=== PATIENT | female | born 1945 | race Caucasian/White ===

== ENCOUNTER → 2020-06-15 12:04 | Outpatient (CLI) | payer MEDICARE, BC, SELFPAY ==
[2020-06-15 13:56] LABS: Add Manual Diff / Slide Review NO; Basophils Absolute Auto 0 /uL (0-100); Basophils Percent Auto 0.6 % (0-2); Eosinophils Absolute Auto 100 /uL (0-450); Eosinophils Percent Auto 0.9 % (2-4); Hematocrit 42.3 % (36-46); Hemoglobin 14.2 g/dL (12.0-16.0); Lymphocytes Absolute Auto 1400 /uL (1100-4500); Lymphocytes Percent Auto 21.9 % (25-40); Mean Corpuscular HGB Conc 33.5 % (30-36); Mean Corpuscular Hemoglobin 30.9 PG (26-34); Mean Corpuscular Volume 92.4 fL (80-100); Monocytes Absolute Auto 600 /uL (0-900); Monocytes Percent Auto 10.1 % (3-14); Neutrophils Absolute Auto 4100 /uL (1500-7000); Neutrophils Percent Auto 66.5 % (50-75); Platelet Count 357 X10^3/uL (150-400); Red Blood Cell Count 4.58 X10^6/uL (4.0-5.2); White Blood Cell Count 6.2 X10^3/uL (4.5-11.0)
[2020-06-15 14:11] LABS: Alanine Aminotransferase 49 IU/L (<35); Albumin 4.6 g/dL (3.5-5.0); Albumin Globulin Ratio 1.5 (1.0-2.8); Alkaline Phosphatase 61 U/L (38-126); Aspartate Aminotransferase 38 IU/L (14-36); BUN Creatinine Ratio 17.3 (6-22); Bilirubin Total 0.7 mg/dL (0.2-1.3); Blood Urea Nitrogen 23 mg/dL (7-17); Carbon Dioxide 30 mmol/L (22-32); Chloride 101 mmol/L (98-107); Estimated Glomerular Filt Rate 38.9 mL/min (>60); Glucose 105 mg/dL (80-110); HEMOLYSIS < 15 (0-50); Lipase 33 U/L (23-300); Potassium 4.7 mmol/L (3.4-5.1); Sodium 139 mmol/L (137-145); Total Protein 7.6 g/dL (6.3-8.2)
== END ==
PROVIDERS: PCP Internal Medicine; Referring Provider Internal Medicine; Visit Provider Internal Medicine
DX: I25.10 Atherosclerotic heart disease of native coronary artery without angina pectoris (principal); R19.7 Diarrhea, unspecified; R10.33 Periumbilical pain
CPT/HCPCS: 36415; 80053; 83690; 85025

== ENCOUNTER → 2020-06-16 11:59 | Outpatient (CLI) | payer MEDICARE, BC, SELFPAY ==
[2020-06-16 13:15] LABS: Clostridium Difficile Tox PCR Negative for C. diff
== END ==
PROVIDERS: PCP Internal Medicine; Referring Provider Internal Medicine; Visit Provider Internal Medicine
DX: I25.10 Atherosclerotic heart disease of native coronary artery without angina pectoris (principal); R19.7 Diarrhea, unspecified; R10.33 Periumbilical pain
CPT/HCPCS: 87205; 87493

== ENCOUNTER → 2020-06-20 08:41 | Outpatient (CLI) | payer MEDICARE, BC, SELFPAY ==
--- NOTE | 2020-06-20 | DI.CT.S_ITS ---
PROCEDURE: CT ABDOMEN PELVIS W CON INDICATIONS: Atherosclerotic heart disease of [place] coronary TECHNIQUE: After the administration of oral and intravenous contrast, 5 mm thick sections acquired from the diaphragms to the symphysis. 5 mm thick coronal and sagittal reformats were performed. For radiation dose reduction, the following was used: automated exposure control, adjustment of mA and/or kV according to patient size. COMPARISON: None. FINDINGS: Image quality: Excellent. ABDOMEN: Lung bases: Lung bases are clear. Heart size is normal. Hepatic steatosis gallbladder not seen, probably decompressed versus surgically absent. . Biliary system is non-dilated. Pancreas enhances normally. Spleen is normal in size and enhancement. No adrenal nodules. Kidneys are normal in size and enhancement, without hydronephrosis. Small hiatal hernia. No free fluid or air. Colonic diverticulosis is seen without evidence of acute complication. Nodes and vessels: No retroperitoneal or mesenteric adenopathy. Aorta and inferior vena cava are normal in caliber. Miscellaneous: No ventral hernias. PELVIS: Genitourinary: Bladder wall thickness is normal. Miscellaneous: No inguinal hernias or adenopathy. Bones: No suspicious bony lesions. No vertebral body compression fractures. IMPRESSION: Small hiatal hernia Hepatic steatosis. Incidental colonic diverticulosis. No acute abnormality identified. Dictated by: Tayo Lamar M.D. on 06/20/2020 at 10:16 Approved by: Tayo Lamar M.D. on 06/20/2020 at 10:23
== END ==
PROVIDERS: PCP Internal Medicine; Referring Provider Internal Medicine; Visit Provider Internal Medicine
DX: I25.10 Atherosclerotic heart disease of native coronary artery without angina pectoris (principal); K76.0 Fatty (change of) liver, not elsewhere classified; K57.90 Diverticulosis of intestine, part unspecified, without perforation or abscess without bleeding; K44.9 Diaphragmatic hernia without obstruction or gangrene; R19.7 Diarrhea, unspecified; R10.33 Periumbilical pain
CPT/HCPCS: 74177

== ENCOUNTER 2020-09-10 16:46 | Inpatient (IN) | payer MEDICARE, BC, SELFPAY ==
[2020-09-10] VITALS (15 sets, daily range): BP systolic 96–141; BP diastolic 37–71; PULSE 64–79; RESP 13–25; TEMP 35.7–38.9; O2SAT 88–98; BMI 26.6
--- NOTE | 2020-09-10 17:34 | ED_ITS ---
HPI - SOB/Dyspnea <Deanna Stiles, DO - Last Filed: 09/11/20 07:38> General Chief Complaint: Shortness of Breath/Dyspnea Stated Complaint: Head cold that is worsening Time Seen by Provider: 09/10/20 16:59 Source: patient and family () Mode of arrival: Wheelchair Limitations: no limitations History of Present Illness HPI Narrative: This is a 74-year-old female who comes in with complaint of 6 days initially had congestion with postnasal drip, she states over the last several days it has moved more into her chest and she feels congested. She has had a cough with some productive sputum. She occasionally feels short of breath or like she needs to take a deep inspiration. She denies any chest pain. She has a fever here in the department. She has had some anorexia, some mild nausea but no vomiting. She denies any major changes to bowel movements or with urination. She denies any swelling in her extremities. She does have a history of rheumatic heart disease as well as cardiac stent, she states she has rheumatoid but is not currently on any steroids or immune modulating medications per the patient. She denies any prior tobacco use. She states she has an allergies to sulfa, Valium and oxycodone. Dr. Ochoa is her primary care. Related Data Home Medications Medication Instructions Recorded Confirmed amlodipine 5 mg PO DAILY 09/10/20 09/10/20 aspirin [Concepcion Chewable Aspirin] 81 mg PO DAILY 09/10/20 09/10/20 cholecalciferol (vitamin D3) 50 mcg PO DAILY 09/10/20 09/10/20 dexlansoprazole [Dexilant] 60 mg PO DAILY 09/10/20 09/10/20 glimepiride mg 09/10/20 nitroglycerin 0.3 mg SUBLINGUAL Q5-15M PRN 09/10/20 09/10/20 potassium [Potassium Chelated] mg 09/10/20 prednisone 5 mg PO TAPER PRN 09/10/20 09/10/20 simvastatin 20 mg PO BEDTIME 09/10/20 09/10/20 tofacitinib [Xeljanz XR] 11 mg PO Q24H 09/10/20 09/10/20 vitamin B complex [B Complex] 1 cap PO DAILY 09/10/20 09/10/20 Allergies Allergy/AdvReac Type Severity Reaction Status Date / Time Sulfa (Sulfonamide Allergy Anaphylaxis Verified 09/10/20 17:17 Antibiotics) codeine AdvReac Verified 09/10/20 17:17 diazepam [From Valium] AdvReac Hallucinati Verified 09/10/20 17:17 ng oxycodone AdvReac Verified 09/10/20 17:17 Review of Systems <Deanna Stiles DO - Last Filed: 09/11/20 07:38> Review of Systems ROS Unobtainable: All systems reviewed & are unremarkable except as noted in HPI and below <Kelley Stanton DO - Last Filed: 09/10/20 21:22> Review of Systems ROS Unobtainable: All systems reviewed & are unremarkable except as noted in HPI and below Constitutional Constitutional: Reports body ache(s), Reports chills, Reports fatigue and Repo rts fever(s) Cardiovascular Cardiovascular: Denies chest pain, Denies irregular heart rhythm, Denies lightheadedness, Denies palpitations and Denies orthopnea Respiratory Respiratory: Reports as per HPI Endocrine Endocrine: Reports fatigue and Denies palpitations Patient History <Deanna Stiles DO - Last Filed: 09/11/20 07:38> Medical History (Updated 09/11/20 @ 01:20 by OTYA Wang) Coronary artery disease GERD (gastroesophageal reflux disease) Hyperlipidemia Rheumatoid arthritis Type 2 diabetes mellitus Surgical History (Updated 09/11/20 @ 01:20 by TOYA Wang) History of coronary artery stent placement Social History household members: significant other Smoking Status: Never smoker alcohol intake: current Smoking Status: Never smoker alcohol intake frequency: 0-2 drinks per day Substance Use Type: does not use Exam <Deanna Stiles DO - Last Filed: 09/11/20 07:38> Narrative Exam Narrative: GEN: well nourished, well appearing elderly female, alert and oriented x 3, patient appears to be in mild distress. HEENT: Atraumatic, pupils are equal round reactive to light, extraocular movements are intact. HEART: Regular rate and rhythm without murmur, clicks, rubs. LUNGS:Lungs clear to auscultation, no wheezes, rales, crackles, chest moves symmetrically, no tachypnea or accessory muscle use. ABD:bowel sounds normal, soft, non-tender, no guarding, rebound, rigidity, no masses noted, no hepatosplenomegaly MSCL: Non-tender, no muscle atrophy, muscles strength 5/5 upper and lower extremities, full range of motion, normal gait NEURO:CN 2-12 intact, sensation normal SKIN: no rash, no erythema or other changes noted. Initial Vital Signs Initial Vital Signs: Vital Signs Temperature 102.1 F H 09/10/20 17:06 Pulse Rate 75 09/10/20 17:06 Respiratory Rate 18 09/10/20 17:06 Blood Pressure 133/68 09/10/20 17:06 Pulse Oximetry 98 09/10/20 17:06 <Kelley Stanton DO - Last Filed: 09/10/20 21:22> Initial Vital Signs Initial Vital Signs: Vital Signs Temperature 102.1 F H 09/10/20 17:06 Pulse Rate 75 09/10/20 17:06 Respiratory Rate 18 09/10/20 17:06 Blood Pressure 133/68 09/10/20 17:06 Pulse Oximetry 98 09/10/20 17:06 Course <Deanna Stiles, DO - Last Filed: 09/11/20 07:38> Orders Ordered: Acetaminophen (Acetaminophen 325 Mg Tablet) 650 mg PO Q4HR PRN PRN Reason: Fever/Mild Pain (1-3) Al Hydrox/Mg Hydrox/Simethicone (Mag Hydrox/Alum/Simeth 30 Ml Udc) 30 ml PO Q6HR PRN PRN Reason: Dyspepsia Amlodipine Besylate (Amlodipine 5 Mg Tablet) 5 mg PO DAILY [facility] Aspirin (Aspirin 81 Mg Chew Tab) 81 mg PO DAILY [facility] Bisacodyl (Bisacodyl 10 Mg Supp) 10 mg UT DAILY PRN PRN Reason: Constipation Calcium Carbonate (Calcium Carbonate 500 Mg Tab) 1,000 mg PO Q4HR PRN PRN Reason: Dyspepsia Dexamethasone (Dexamethasone 10 Mg/Ml Vial) 6 mg IV DAILY [facility] Dextrose (Dextrose 50 % In Water 25 Gm/50 Ml Syringe) 25 gm IV PRN PRN; P rotocol PRN Reason: Hypoglycemia Docusate Sodium (Docusate 100 Mg Capsule) 100 mg PO BID [facility] Last Admin: 09/10/20 22:01 Dose: 100 mg Documented by: GPEREZ Heparin Sodium (Porcine) (Heparin 5,000 Unit/Ml Vial) 5,000 unit SUBCUT BID [facility] Last Admin: 09/10/20 22:02 Dose: 5,000 unit Documented by: JUANITA Remdesivir 100 mg/ Sodium (Chloride) 250 mls @ 250 mls/hr IV DAILY [facility] Sodium Chloride (Normal Saline 0.9%) 250 mls @ 21 mls/hr IV Q24H PRN PRN Reason: Flush Famotidine (Pepcid) 20 mg in 50 mls @ 200 mls/hr IV BID [facility] Insulin Aspart (Insulin Aspart 100 Unit/Ml Insuln Pen) 0 unit SUBCUT ACHS [facility]; Protocol Last Admin: 09/10/20 22:37 Dose: 1 unit Documented by: JUANITA Cosigned by: LESLIE Melatonin (Melatonin 3 Mg Tablet) 6 mg PO BEDTIME [facility] Naloxone HCl (Naloxone 0.4 Mg/Ml Vial) 0.2 mg IV Q2MIN PRN PRN Reason: Opiate Reversal Non-Formulary Medication (Dexlansoprazole [Dexilant]) 60 mg PO DAILY [facility] Ondansetron HCl (Ondansetron 4 Mg/2 Ml Inj) 4 mg IV Q8HR PRN PRN Reason: Nausea And Vomiting Simvastatin (Simvastatin 20 Mg Tablet) 20 mg PO BEDTIME [facility] Sodium Chloride (Sodium Chloride 0.9% Flush) 10 ml IV PRN PRN PRN Reason: Flush Sodium Chloride (Sodium Chloride 0.9% Flush) 10 ml IV BID [facility] Last Admin: 09/10/20 22:03 Dose: 10 ml Documented by: JUANITA Vitamin D (Cholecalciferol (Vitamin D3) 1,000 Unit Tablet) 1,000 unit PO DAILY [facility] Discontinued Medications Acetaminophen (Acetaminophen 325 Mg Tablet) 975 mg PO NOW ONE Stop: 09/10/20 17:43 Last Admin: 09/10/20 18:01 Dose: 975 mg Documented by: ADINA Dexamethasone (Dexamethasone 10 Mg/Ml Vial) 6 mg IV NOW ONE Stop: 09/10/20 18:57 Last Admin: 09/10/20 19:46 Dose: 6 mg Documented by: JACEY Sodium Chloride (Normal Saline 0.9%) 1,000 mls @ 125 mls/hr IV CONT [facility] Last Infusion: 09/10/20 22:03 Dose: 0 mls/hr Documented by: Infusion: 09/10/20 21:21 Dose: 0 mls/hr Documented by: Admin: 09/10/20 18:02 Dose: 125 mls/hr Documented by: ADINA Remdesivir 200 mg/ Sodium (Chloride) 250 mls @ 250 mls/hr IV NOW ONE Stop: 09/10/20 18:57 Last Infusion: 09/10/20 21:22 Dose: 0 mls/hr Documented by: Admin: 09/10/20 19:49 Dose: 250 mls/hr Documented by: JACEY Famotidine (Pepcid) 20 mg in 50 mls @ 200 mls/hr IV Q12HR [facility] Last Infusion: 09/10/20 23:03 Dose: 0 mls/hr Documented by: Admin: 09/10/20 22:00 Dose: 200 mls/hr Documented by: JUANITA Vital Signs Vital signs: Vital Signs - 8 hr 09/10/20 17:06 09/10/20 17:11 09/10/20 17:15 Temperature 102.1 F H Pulse Rate 75 76 75 Respiratory Rate 18 Blood Pressure 133/68 133/68 Pulse Oximetry 98 98 98 09/10/20 17:30 09/10/20 17:35 09/10/20 18:00 Temperature Pulse Rate 75 76 Respiratory Rate Blood Pressure 123/65 141/63 H Pulse Oximetry 98 90 L 09/10/20 18:30 09/10/20 18:31 09/10/20 19:00 Temperature Pulse Rate 79 74 71 Respiratory Rate 24 24 24 Blood Pressure 96/51 L 111/56 L Pulse Oximetry 95 94 94 09/10/20 19:30 09/10/20 20:03 Temperature Pulse Rate 68 Respiratory Rate 22 Blood Pressure 104/53 L Pulse Oximetry 94 88 L <Kelley Stanton, DO - Last Filed: 09/10/20 21:22> Orders Ordered: Acetaminophen (Acetaminophen 325 Mg Tablet) 650 mg PO Q4HR PRN PRN Reason: Fever/Mild Pain (1-3) Al Hydrox/Mg Hydrox/Simethicone (Mag Hydrox/Alum/Simeth 30 Ml Udc) 30 ml PO Q6HR PRN PRN Reason: Dyspepsia Amlodipine Besylate (Amlodipine 5 Mg Tablet) 5 mg PO DAILY [facility] Aspirin (Aspirin 81 Mg Chew Tab) 81 mg PO DAILY [facility] Bisacodyl (Bisacodyl 10 Mg Supp) 10 mg UT DAILY PRN PRN Reason: Constipation Calcium Carbonate (Calcium Carbonate 500 Mg Tab) 1,000 mg PO Q4HR PRN PRN Reason: Dyspepsia Dexamethasone (Dexamethasone 10 Mg/Ml Vial) 6 mg IV DAILY [facility] Dextrose (Dextrose 50 % In Water 25 Gm/50 Ml Syringe) 25 gm IV PRN PRN; Protocol PRN Reason: Hypoglycemia Docusate Sodium (Docusate 100 Mg Capsule) 100 mg PO BID [facility] Last Admin: 09/10/20 22:01 Dose: 100 mg Documented by: JUANITA Heparin Sodium (Porcine) (Heparin 5,000 Unit/Ml Vial) 5,000 unit SUBCUT BID [facility] Last Admin: 09/10/20 22:02 Dose: 5,000 unit Documented by: JUANITA Remdesivir 100 mg/ Sodium (Chloride) 250 mls @ 250 mls/hr IV DAILY [facility] Sodium Chloride (Normal Saline 0.9%) 250 mls @ 21 mls/hr IV Q24H PRN PRN Reason: Flush Famotidine (Pepcid) 20 mg in 50 mls @ 200 mls/hr IV BID [facility] Insulin Aspart (Insulin Aspart 100 Unit/Ml Insuln Pen) 0 unit SUBCUT ACHS [facility]; Protocol Last Admin: 09/10/20 22:37 Dose: 1 unit Documented by: JUANITA Cosigned by: LESLIE Melatonin (Melatonin 3 Mg Tablet) 6 mg PO BEDTIME [facility] Naloxone HCl (Naloxone 0.4 Mg/Ml Vial) 0.2 mg IV Q2MIN PRN PRN Reason: Opiate Reversal Non-Formulary Medication (Dexlansoprazole [Dexilant]) 60 mg PO DAILY [facility] Ondansetron HCl (Ondansetron 4 Mg/2 Ml Inj) 4 mg IV Q8HR PRN PRN Reason: Nausea And Vomiting Simvastatin (Simvastatin 20 Mg Tablet) 20 mg PO BEDTIME [facility] Sodium Chloride (Sodium Chloride 0.9% Flush) 10 ml IV PRN PRN PRN Reason: Flush Sodium Chloride (Sodium Chloride 0.9% Flush) 10 ml IV BID [facility] Last Admin: 09/10/20 22:03 Dose: 10 ml Documented by: JUANITA Vitamin D (Cholecalciferol (Vitamin D3) 1,000 Unit Tablet) 1,000 unit PO DAILY [facility] Discontinued Medications Acetaminophen (Acetaminophen 325 Mg Tablet) 975 mg PO NOW ONE Stop: 09/10/20 17:43 Last Admin: 09/10/20 18:01 Dose: 975 mg Documented by: ADINA Dexamethasone (Dexamethasone 10 Mg/Ml Vial) 6 mg IV NOW ONE Stop: 09/10/20 18:57 Last Admin: 09/10/20 19:46 Dose: 6 mg Documented by: JACEY Sodium Chloride (Normal Saline 0.9%) 1,000 mls @ 125 mls/hr IV CONT [facility] Last Infusion: 09/10/20 22:03 Dose: 0 mls/hr Documented by: Infusion: 09/10/20 21:21 Dose: 0 mls/hr Documented by: Admin: 09/10/20 18:02 Dose: 125 mls/hr Documented by: ADINA Remdesivir 200 mg/ Sodium (Chloride) 250 mls @ 250 mls/hr IV NOW ONE Stop: 09/10/20 18:57 Last Infusion: 09/10/20 21:22 Dose: 0 mls/hr Documented by: Admin: 09/10/20 19:49 Dose: 250 mls/hr Documented by: JACEY Famotidine (Pepcid) 20 mg in 50 mls @ 200 mls/hr IV Q12HR [facility] Last Infusion: 09/10/20 23:03 Dose: 0 mls/hr Documented by: Admin: 09/10/20 22:00 Dose: 200 mls/hr Documented by: JUANITA Vital Signs Vital signs: Vital Signs - 8 hr 09/10/20 17:06 09/10/20 17:11 09/10/20 17:15 Temperature 102.1 F H Pulse Rate 75 76 75 Respiratory Rate 18 Blood Pressure 133/68 133/68 Pulse Oximetry 98 98 98 09/10/20 17:30 09/10/20 17:35 09/10/20 18:00 Temperature Pulse Rate 75 76 Respiratory Rate Blood Pressure 123/65 141/63 H Pulse Oximetry 98 90 L 09/10/20 18:30 09/10/20 18:31 09/10/20 19:00 Temperature Pulse Rate 79 74 71 Respiratory Rate 24 24 24 Blood Pressure 96/51 L 111/56 L Pulse Oximetry 95 94 94 09/10/20 19:30 09/10/20 20:03 Temperature Pulse Rate 68 Respiratory Rate 22 Blood Pressure 104/53 L Pulse Oximetry 94 88 L MDM - SOB/Dyspnea <Deannafaith Stiles, - Last Filed: 09/11/20 07:38> Lab Data Result diagrams: 09/11/20 04:40 09/11/20 04:40 Labs: Lab Results 09/10/20 09/10/20 09/10/20 Range/Units 17:00 18:25 18:25 WBC 6.1 (4.5-11.0) X10^3/uL RBC 4.13 (4.0-5.2) X10^6/uL Hgb 12.5 (12.0-16.0) g/dL Hct 37.3 (36-46) % MCV 90.4 (80-100) fL MCH 30.2 (26-34) PG MCHC 33.4 (30-36) % RDW 14.2 (11.6-14.8) % Plt Count 258 (150-400) X10^3/uL Neut % (Auto) 81.8 H (50-75) % Lymph % (Auto) 5.6 L (25-40) % [place] % (Auto) 12.1 (3-14) % Eos % (Auto) 0.3 L (2-4) % Baso % (Auto) 0.2 (0-2) % Neut # (Auto) 5000 (4078-3621) /uL Lymph # (Auto) 300 L (1540-0376) /uL [place] # (Auto) 700 (0-900) /uL Eos # (Auto) 0 (0-450) /uL Baso # (Auto) 0 (0-100) /uL D-Dimer (<230) ng/mL Sodium (137-145) mmol/L Potassium (3.4-5.1) mmol/L Chloride (98-107) mmol/L Carbon Dioxide (22-32) mmol/L BUN (7-17) mg/dL Creatinine (0.52-1.04) mg/dL Estimated GFR (>60) mL/min BUN/Creatinine Ratio (6-22) Glucose (80-110) mg/dL Hemoglobin A1c (4.0-6.0) % Lactate (0.7-2.1) mmol/L Calcium (8.4-10.2) mg/dL Magnesium (1.6-2.3) mg/dL Ferritin (11-264) ng/mL Total Bilirubin (0.2-1.3) mg/dL AST (14-36) IU/L ALT (<35) IU/L Alkaline Phosphatase (38-126) U/L Lactate Dehydrogenase (313-618) U/L Total Creatine Kinase (30-135) U/L CK-MB (CK-2) CK-MB (CK-2) Rel Index Troponin I (0.01-0.034) ng/mL C-Reactive Protein (<1.0) mg/dL NT-Pro-B Natriuret Pep (<450) pg/mL Total Protein (6.3-8.2) g/dL Albumin (3.5-5.0) g/dL Globulin (1.7-4.1) g/dL Albumin/Globulin Ratio (1.0-2.8) Procalcitonin < 0.05 (<0.5) ng/mL COVID-19 PCR Positive H (Negative) 09/10/20 09/10/20 09/10/20 Range/Units 18:25 18:25 18:25 WBC (4.5-11.0) X10^3/uL RBC (4.0-5.2) X10^6/uL Hgb (12.0-16.0) g/dL Hct (36-46) % MCV (80-100) fL MCH (26-34) PG MCHC (30-36) % RDW (11.6-14.8) % Plt Count (150-400) X10^3/uL Neut % (Auto) (50-75) % Lymph % (Auto) (25-40) % [place] % (Auto) (3-14) % Eos % (Auto) (2-4) % Baso % (Auto) (0-2) % Neut # (Auto) (1816-5760) /uL Lymph # (Auto) (4637-7522) /uL [place] # (Auto) (0-900) /uL Eos # (Auto) (0-450) /uL Baso # (Auto) (0-100) /uL D-Dimer (<230) ng/mL Sodium 138 (137-145) mmol/L Potassium 3.9 (3.4-5.1) mmol/L Chloride 102 (98-107) mmol/L Carbon Dioxide 30 (22-32) mmol/L BUN 16 (7-17) mg/dL Creatinine 0.93 (0.52-1.04) mg/dL Estimated GFR 58.8 L (>60) mL/min BUN/Creatinine Ratio 17.2 (6-22) Glucose 140 H (80-110) mg/dL Hemoglobin A1c (4.0-6.0) % Lactate 1.1 (0.7-2.1) mmol/L Calcium 8.5 (8.4-10.2) mg/dL Magnesium (1.6-2.3) mg/dL Ferritin 727 H (11-264) ng/mL Total Bilirubin 0.6 (0.2-1.3) mg/dL AST 51 H (14-36) IU/L ALT 38 H (<35) IU/L Alkaline Phosphatase 80 (38-126) U/L Lactate Dehydrogenase 698 H (313-618) U/L Total Creatine Kinase 52 (30-135) U/L CK-MB (CK-2) TNP CK-MB (CK-2) Rel Index TNP Troponin I < 0.012 (0.01-0.034) ng/mL C-Reactive Protein 12.1 H (<1.0) mg/dL NT-Pro-B Natriuret Pep 148 (<450) pg/mL Total Protein 7.4 (6.3-8.2) g/dL Albumin 3.8 (3.5-5.0) g/dL Globulin 3.6 (1.7-4.1) g/dL Albumin/Globulin Ratio 1.1 (1.0-2.8) Procalcitonin (<0.5) ng/mL COVID-19 PCR (Negative) 09/10/20 09/10/20 09/10/20 Range/Units 18:25 18:25 18:25 WBC (4.5-11.0) X10^3/uL RBC (4.0-5.2) X10^6/uL Hgb (12.0-16.0) g/dL Hct (36-46) % MCV (80-100) fL MCH (26-34) PG MCHC (30-36) % RDW (11.6-14.8) % Plt Count (150-400) X10^3/uL Neut % (Auto) (50-75) % Lymph % (Auto) (25-40) % [place] % (Auto) (3-14) % Eos % (Auto) (2-4) % Baso % (Auto) (0-2) % Neut # (Auto) (8031-4567) /uL Lymph # (Auto) (1935-2867) /uL [place] # (Auto) (0-900) /uL Eos # (Auto) (0-450) /uL Baso # (Auto) (0-100) /uL D-Dimer 428 H (<230) ng/mL Sodium (137-145) mmol/L Potassium (3.4-5.1) mmol/L Chloride (98-107) mmol/L Carbon Dioxide (22-32) mmol/L BUN (7-17) mg/dL Creatinine (0.52-1.04) mg/dL Estimated GFR (>60) mL/min BUN/Creatinine Ratio (6-22) Glucose (80-110) mg/dL Hemoglobin A1c 7.5 H (4.0-6.0) % Lactate (0.7-2.1) mmol/L Calcium (8.4-10.2) mg/dL Magnesium 2.0 (1.6-2.3) mg/dL Ferritin (11-264) ng/mL Total Bilirubin (0.2-1.3) mg/dL AST (14-36) IU/L ALT (<35) IU/L Alkaline Phosphatase (38-126) U/L Lactate Dehydrogenase (313-618) U/L Total Creatine Kinase (30-135) U/L CK-MB (CK-2) CK-MB (CK-2) Rel Index Troponin I (0.01-0.034) ng/mL C-Reactive Protein (<1.0) mg/dL NT-Pro-B Natriuret Pep (<450) pg/mL Total Protein (6.3-8.2) g/dL Albumin (3.5-5.0) g/dL Globulin (1.7-4.1) g/dL Albumin/Globulin Ratio (1.0-2.8) Procalcitonin (<0.5) ng/mL COVID-19 PCR (Negative) Point of Care Testing Glucose POC 141 MDM Narrative Medical decision making narrative: Patient's COVID swab is positive, labs, EKG and chest x-ray were ordered patient's O2 was 90% initially on room air and she is febrile. Tylenol was ordered. While these are pending patient was signed out to for final disposition. Patient's spouse is at bedside and we did discuss that he should assume he is infected. <Kelley Stanton, DO - Last Filed: 09/10/20 21:22> Lab Data Attestation: I reviewed the patient's lab results. Labs: Lab Results 09/10/20 09/10/20 09/10/20 Range/Units 17:00 18:25 18:25 WBC 6.1 (4.5-11.0) X10^3/uL RBC 4.13 (4.0-5.2) X10^6/uL Hgb 12.5 (12.0-16.0) g/dL Hct 37.3 (36-46) % MCV 90.4 (80-100) fL MCH 30.2 (26-34) PG MCHC 33.4 (30-36) % RDW 14.2 (11.6-14.8) % Plt Count 258 (150-400) X10^3/uL Neut % (Auto) 81.8 H (50-75) % Lymph % (Auto) 5.6 L (25-40) % [place] % (Auto) 12.1 (3-14) % Eos % (Auto) 0.3 L (2-4) % Baso % (Auto) 0.2 (0-2) % Neut # (Auto) 5000 (1883-7556) /uL Lymph # (Auto) 300 L (7006-0910) /uL [place] # (Auto) 700 (0-900) /uL Eos # (Auto) 0 (0-450) /uL Baso # (Auto) 0 (0-100) /uL D-Dimer (<230) ng/mL Sodium (137-145) mmol/L Potassium (3.4-5.1) mmol/L Chloride (98-107) mmol/L Carbon Dioxide (22-32) mmol/L BUN (7-17) mg/dL Creatinine (0.52-1.04) mg/dL Estimated GFR (>60) mL/min BUN/Creatinine Ratio (6-22) Glucose (80-110) mg/dL Hemoglobin A1c (4.0-6.0) % Lactate (0.7-2.1) mmol/L Calcium (8.4-10.2) mg/dL Magnesium (1.6-2.3) mg/dL Ferritin (11-264) ng/mL Total Bilirubin (0.2-1.3) mg/dL AST (14-36) IU/L ALT (<35) IU/L Alkaline Phosphatase (38-126) U/L Lactate Dehydrogenase (313-618) U/L Total Creatine Kinase (30-135) U/L CK-MB (CK-2) CK-MB (CK-2) Rel Index Troponin I (0.01-0.034) ng/mL C-Reactive Protein (<1.0) mg/dL NT-Pro-B Natriuret Pep (<450) pg/mL Total Protein (6.3-8.2) g/dL Albumin (3.5-5.0) g/dL Globulin (1.7-4.1) g/dL Albumin/Globulin Ratio (1.0-2.8) Procalcitonin < 0.05 (<0.5) ng/mL COVID-19 PCR Positive H (Negative) 09/10/20 09/10/20 09/10/20 Range/Units 18:25 18:25 18:25 WBC (4.5-11.0) X10^3/uL RBC (4.0-5.2) X10^6/uL Hgb (12.0-16.0) g/dL Hct (36-46) % MCV (80-100) fL MCH (26-34) PG MCHC (30-36) % RDW (11.6-14.8) % Plt Count (150-400) X10^3/uL Neut % (Auto) (50-75) % Lymph % (Auto) (25-40) % [place] % (Auto) (3-14) % Eos % (Auto) (2-4) % Baso % (Auto) (0-2) % Neut # (Auto) (4507-7971) /uL Lymph # (Auto) (2445-3298) /uL [place] # (Auto) (0-900) /uL Eos # (Auto) (0-450) /uL Baso # (Auto) (0-100) /uL D-Dimer (<230) ng/mL Sodium 138 (137-145) mmol/L Potassium 3.9 (3.4-5.1) mmol/L Chloride 102 (98-107) mmol/L Carbon Dioxide 30 (22-32) mmol/L BUN 16 (7-17) mg/dL Creatinine 0.93 (0.52-1.04) mg/dL Estimated GFR 58.8 L (>60) mL/min BUN/Creatinine Ratio 17.2 (6-22) Glucose 140 H (80-110) mg/dL Hemoglobin A1c (4.0-6.0) % Lactate 1.1 (0.7-2.1) mmol/L Calcium 8.5 (8.4-10.2) mg/dL Magnesium (1.6-2.3) mg/dL Ferritin 727 H (11-264) ng/mL Total Bilirubin 0.6 (0.2-1.3) mg/dL AST 51 H (14-36) IU/L ALT 38 H (<35) IU/L Alkaline Phosphatase 80 (38-126) U/L Lactate Dehydrogenase 698 H (313-618) U/L Total Creatine Kinase 52 (30-135) U/L CK-MB (CK-2) TNP CK-MB (CK-2) Rel Index TNP Troponin I < 0.012 (0.01-0.034) ng/mL C-Reactive Protein 12.1 H (<1.0) mg/dL NT-Pro-B Natriuret Pep 148 (<450) pg/mL Total Protein 7.4 (6.3-8.2) g/dL Albumin 3.8 (3.5-5.0) g/dL Globulin 3.6 (1.7-4.1) g/dL Albumin/Globulin Ratio 1.1 (1.0-2.8) Procalcitonin (<0.5) ng/mL COVID-19 PCR (Negative) 09/10/20 09/10/20 09/10/20 Range/Units 18:25 18:25 18:25 WBC (4.5-11.0) X10^3/uL RBC (4.0-5.2) X10^6/uL Hgb (12.0-16.0) g/dL Hct (36-46) % MCV (80-100) fL MCH (26-34) PG MCHC (30-36) % RDW (11.6-14.8) % Plt Count (150-400) X10^3/uL Neut % (Auto) (50-75) % Lymph % (Auto) (25-40) % [place] % (Auto) (3-14) % Eos % (Auto) (2-4) % Baso % (Auto) (0-2) % Neut # (Auto) (9737-7953) /uL Lymph # (Auto) (2798-2043) /uL [place] # (Auto) (0-900) /uL Eos # (Auto) (0-450) /uL Baso # (Auto) (0-100) /uL D-Dimer 428 H (<230) ng/mL Sodium (137-145) mmol/L Potassium (3.4-5.1) mmol/L Chloride (98-107) mmol/L Carbon Dioxide (22-32) mmol/L BUN (7-17) mg/dL Creatinine (0.52-1.04) mg/dL Estimated GFR (>60) mL/min BUN/Creatinine Ratio (6-22) Glucose (80-110) mg/dL Hemoglobin A1c 7.5 H (4.0-6.0) % Lactate (0.7-2.1) mmol/L Calcium (8.4-10.2) mg/dL Magnesium 2.0 (1.6-2.3) mg/dL Ferritin (11-264) ng/mL Total Bilirubin (0.2-1.3) mg/dL AST (14-36) IU/L ALT (<35) IU/L Alkaline Phosphatase (38-126) U/L Lactate Dehydrogenase (313-618) U/L Total Creatine Kinase (30-135) U/L CK-MB (CK-2) CK-MB (CK-2) Rel Index Troponin I (0.01-0.034) ng/mL C-Reactive Protein (<1.0) mg/dL NT-Pro-B Natriuret Pep (<450) pg/mL Total Protein (6.3-8.2) g/dL Albumin (3.5-5.0) g/dL Globulin (1.7-4.1) g/dL Albumin/Globulin Ratio (1.0-2.8) Procalcitonin (<0.5) ng/mL COVID-19 PCR (Negative) Point of Care Testing Glucose POC 141 Imaging Data Chest x-ray: Radiologist's Impression: PROCEDURE: XR CHEST 1V INDICATIONS: uri/chest congestion, covid + TECHNIQUE: One view of the chest was acquired. COMPARISON: None. FINDINGS: Surgical changes and devices: None. Lungs and pleura: Bilateral peripheral infiltrates consistent with pneumonia. No pleural effusions or pneumothorax. Mediastinum: Mediastinal contours appear normal. Heart size is normal. Bones and chest wall: No suspicious bony lesions. Overlying soft tissues appear unremarkable. IMPRESSION: Bilateral pneumonia. Dictated by: Claribel Milligan M.D. on 09/10/2020 at 18:18 ECG Data Attestation: I personally reviewed and interpreted this ECG as follows: Prior ECG tracings: not available for review Interpretation: Poor EKG tracing lead to is not seen however sinus rhythm no ST changes MDM Narrative Medical decision making narrative: I received sign-out from Dr. Stiles I have seen and evaluated patient myself. She overall appears weak and fatigued. Room air O2 is 90% but she does feel better and looked better on 1-2 L. blood pressure is low at 96. She is elderly with history of diabetes and coronary artery disease. X-ray does show bilateral infiltrates as well. She does have multiple cor morbidities she is requiring oxygen with elevated inflammatory markers. Donald [place] it in ED to see and evaluate patient agrees with admission. Discharge Plan Departure Patient Disposition: Admitted As Inpatient Clinical Impression: COVID-19 virus infection Admit Date/Time: 09/10/20 20:05 Admit Provider: Ean Tillman
--- NOTE | 2020-09-10 17:44 | DI.RAD.S_ITS ---
PROCEDURE: XR CHEST 1V INDICATIONS: uri/chest congestion, covid + TECHNIQUE: One view of the chest was acquired. COMPARISON: None. FINDINGS: Surgical changes and devices: None. Lungs and pleura: Bilateral peripheral infiltrates consistent with pneumonia. No pleural effusions or pneumothorax. Mediastinum: Mediastinal contours appear normal. Heart size is normal. Bones and chest wall: No suspicious bony lesions. Overlying soft tissues appear unremarkable. IMPRESSION: Bilateral pneumonia. Dictated by: Claribel Milligan M.D. on 09/10/2020 at 18:18 Approved by: Claribel Milligan M.D. on 09/10/2020 at 18:18
[2020-09-10 17:45] LABS: COVID19 -Nasal RAPID POSITIVE (Negative)
[2020-09-10] MEDS: ACETAMINOPHEN 325 MG TABLET 975 MG PO (18:01)
[2020-09-10] MEDS: SODIUM CHLORIDE 0.9% 1,000 ML 125 ML IV (18:02)
[2020-09-10 18:47] LABS: Add Manual Diff / Slide Review NO; Basophils Absolute Auto 0 /uL (0-100); Basophils Percent Auto 0.2 % (0-2); Eosinophils Absolute Auto 0 /uL (0-450); Eosinophils Percent Auto 0.3 % (2-4); Hematocrit 37.3 % (36-46); Hemoglobin 12.5 g/dL (12.0-16.0); Lymphocytes Absolute Auto 300 /uL (1100-4500); Lymphocytes Percent Auto 5.6 % (25-40); Mean Corpuscular HGB Conc 33.4 % (30-36); Mean Corpuscular Hemoglobin 30.2 PG (26-34); Mean Corpuscular Volume 90.4 fL (80-100); Monocytes Absolute Auto 700 /uL (0-900); Monocytes Percent Auto 12.1 % (3-14); Neutrophils Absolute Auto 5000 /uL (1500-7000); Neutrophils Percent Auto 81.8 % (50-75); Platelet Count 258 X10^3/uL (150-400); Red Blood Cell Count 4.13 X10^6/uL (4.0-5.2); Red Cell Distribution Width 14.2 % (11.6-14.8); White Blood Cell Count 6.1 X10^3/uL (4.5-11.0)
[2020-09-10 19:04] LABS: D Dimer 428 ng/mL (<230)
[2020-09-10 19:05] LABS: Alanine Aminotransferase 38 IU/L (<35); Albumin 3.8 g/dL (3.5-5.0); Albumin Globulin Ratio 1.1 (1.0-2.8); Alkaline Phosphatase 80 U/L (38-126); Aspartate Aminotransferase 51 IU/L (14-36); BUN Creatinine Ratio 17.2 (6-22); Bilirubin Total 0.6 mg/dL (0.2-1.3); Blood Urea Nitrogen 16 mg/dL (7-17); Calcium 8.5 mg/dL (8.4-10.2); Carbon Dioxide 30 mmol/L (22-32); Chloride 102 mmol/L (98-107); Creatine Kinase 52 U/L (30-135); Estimated Glomerular Filt Rate 58.8 mL/min (>60); Globulin 3.6 g/dL (1.7-4.1); Glucose 140 mg/dL (80-110); HEMOLYSIS < 15 (0-50); Potassium 3.9 mmol/L (3.4-5.1); Sodium 138 mmol/L (137-145); Total Protein 7.4 g/dL (6.3-8.2)
[2020-09-10 19:06] LABS: Lactate (Lactic Acid) 1.1 mmol/L (0.7-2.1)
[2020-09-10 19:09] LABS: Lactate Dehydrogenase 698 U/L (313-618)
[2020-09-10 19:16] LABS: NT-proBNP (BNP-Adult 18+) 148 pg/mL (<450); Troponin I < 0.012 ng/mL (0.01-0.034)
[2020-09-10 19:23] LABS: C-Reactive Protein Quant 12.1 mg/dL (<1.0)
[2020-09-10 19:24] LABS: Procalcitonin < 0.05 ng/mL (<0.5)
[2020-09-10 19:42] LABS: Ferritin 727 ng/mL (11-264)
[2020-09-10] MEDS: DEXAMETHASONE 10 MG/ML VIAL 6 MG IV (19:46)
[2020-09-10] MEDS: REMDESIVIR 200 MG in SODIUM CHLORIDE 0.9% 210 ML 250 ML IV (19:49)
--- NOTE | 2020-09-10 20:04 | PC.NURSE ---
Pt educated on pronation and encourage to prone when possible. O2 88% on RA and desats with mild exertion.
--- NOTE | 2020-09-10 20:30 | P.HP_ITS ---
History of Present Illness History of Present Illness Date Patient Seen: 09/10/20 Time Patient Seen: 20:27 Chief complaint: Head cold that is worsening Narrative: Ms. Joseline Pascual is a 74-year-old female with a past medical history significant for coronary artery disease status post stenting, diabetes type 2 non-insulin dependent, hyperlipidemia, GERD and rheumatoid arthritis who presents to the ER for worsening head cold. The patient states she has been ill since Thanksgiving approximately 10 days. Patient states she has been steadily feeling worse with associated generalized weakness and malaise, body aches and cough, fevers, headaches, shortness of breath and nasal congestion. She reports reduced appetite and has been drinking large amounts of Gatorade remain hydrated. She describes her symptoms beginning in her head moving into her chest. The patient has tried [id number] remedies without benefit. Patient does have history rheumatoid arthritis and is not currently taking steroids but has been on immune modulator medication Xeljanz daily until becoming ill. Patient endorses headache but denies dizziness or sore throat. She denies complaints of chest pain or palpitations and has shortness of breath worsened by exertion and a cough that is intermittently productive for clear sputum. She reports no appetite and denies nausea vomiting. She reports no epigastric or abdominal pain with history of GERD. She denies changes in urination and does report having irritable bowel syndrome and has tendency towards constipation. She has been ambulatory without assistive devices but has complications of rheumatoid arthritis for mostly in her hands wrists and ankles. Upon arrival ER the patient's temperature of 102.1?, heart rate of 75, blood pressure 133/68, respiratory rate of 18 saturating it 90% on room air. Chest x- ray is obtained finding bilateral peripheral infiltrates, bilateral pneumonia. On laboratory analysis he has white count of 6.1 with increased neutrophils 81.8%, hemoglobin of 12.5, hematocrit of 37.3 and platelets of 258. Her electrolytes are all within normal limits she has a BUN of 16 and creatinine 0.93. Her nonfasting glucose is 140. She has a total bilirubin of 0.6, AST 51 ALT of 38 and alkaline phosphatase of 80. His lactic acid of 1.1 and procalcitonin less than 0.05. She has positive markers of D-dimer at 428, CRP of 12.1, ferritin 727, LDH of 698. She has a total CK of 52 and troponin that is negative at less than 0.012. COVID 19 screening is positive. While in the ER room air saturation was recheck to found to be 88%. Patient continued on oxygen and administered dexamethasone 6 mg and remdesivir 200 mg IV. The patient is admitted to the hospital service for COVID-19 pneumonia. Patient History Medical History (Updated 09/11/20 @ 01:20 by TOYA Wang) Coronary artery disease GERD (gastroesophageal reflux disease) Hyperlipidemia Rheumatoid arthritis Type 2 diabetes mellitus Surgical History (Updated 09/11/20 @ 01:20 by TOYA Wang) History of coronary artery stent placement Family & Social History Social History: household members significant other Prior Living Arrangements Apartment/Condo Safety & Behavioral: Feels Safe in Current Yes Environment Been Physically Hurt or No Threatened By a Person Suicidal Ideation Description None Suicide Plan Description No Plan Tobacco & Substance use: Smoking Status Never smoker alcohol intake current alcohol intake frequency 0-2 drinks per day Substance Use Type does not use Meds Home Medications and Allergies Home Medications Medication Instructions Recorded Confirmed Type amlodipine 5 mg PO DAILY 09/10/20 09/10/20 History aspirin [Concepcion Chewable Aspirin] 81 mg PO DAILY 09/10/20 09/10/20 History cholecalciferol (vitamin D3) 50 mcg PO DAILY 09/10/20 09/10/20 History dexlansoprazole [Dexilant] 60 mg PO DAILY 09/10/20 09/10/20 History glimepiride mg 09/10/20 History nitroglycerin 0.3 mg SUBLINGUAL Q5-15M PRN 09/10/20 09/10/20 History potassium [Potassium Chelated] mg 09/10/20 History prednisone 5 mg PO TAPER PRN 09/10/20 09/10/20 History simvastatin 20 mg PO BEDTIME 09/10/20 09/10/20 History tofacitinib [Xeljanz XR] 11 mg PO Q24H 09/10/20 09/10/20 History vitamin B complex [B Complex] 1 cap PO DAILY 09/10/20 09/10/20 History Allergies Allergy/AdvReac Type Severity Reaction Status Date / Time Sulfa (Sulfonamide Allergy Anaphylaxis Verified 09/10/20 17:17 Antibiotics) codeine AdvReac Verified 09/10/20 17:17 diazepam [From Valium] AdvReac Hallucinati Verified 09/10/20 17:17 ng oxycodone AdvReac Verified 09/10/20 17:17 Review of Systems Review of Systems ROS: Yes All systems reviewed with the patient and are negative except as otherwise documented Exam Vital Signs (past 8 hours): - 09/10/20 17:06 09/10/20 17:11 09/10/20 17:15 Temperature 102.1 F H Pulse Rate 75 76 75 Respiratory Rate 18 Blood Pressure 133/68 133/68 Pulse Oximetry 98 98 98 09/10/20 17:30 09/10/20 17:35 09/10/20 18:00 Temperature Pulse Rate 75 76 Respiratory Rate Blood Pressure 123/65 141/63 H Pulse Oximetry 98 90 L 09/10/20 18:30 09/10/20 18:31 09/10/20 19:00 Temperature Pulse Rate 79 74 71 Respiratory Rate 24 24 24 Blood Pressure 96/51 L 111/56 L Pulse Oximetry 95 94 94 09/10/20 19:30 09/10/20 20:03 09/10/20 20:07 Temperature Pulse Rate 68 71 Respiratory Rate 22 25 H Blood Pressure 104/53 L 131/61 Pulse Oximetry 94 88 L 95 09/10/20 20:16 09/10/20 21:50 09/10/20 23:35 Temperature 96.9 F L 96.2 F L Pulse Rate 64 67 Respiratory Rate 13 20 Blood Pressure 109/37 L 138/71 Pulse Oximetry 95 96 98 09/11/20 00:18 Temperature Pulse Rate Respiratory Rate Blood Pressure Pulse Oximetry 95 Oxygen Delivery Method Nasal Cannula Oxygen Flow Rate 4 Narrative Exam Narrative: GENERAL APPEARANCE: well developed, adequately nourished, ill-appearing female. HEENT: Normocephalic, PERRLA, conjunctiva clear, EOMs intact without nystagmus, no sinus tenderness to percussion, mucous membranes are moist and pink. NECK/THYROID: neck supple, no JVD, no carotid bruit, no thyromegaly, trachea midline. LYMPH NODES: no cervical or supraclavicular lymphadenopathy. SKIN: [employer], warm and dry, no visible lesions, rashes, ulcerations or petechiae. HEART: regular rate and rhythm, S1-S2, no murmur, no rubs or gallops, brisk capillary refill, no edema LUNGS: Breath sounds with scattered crackles in all block common no wheezing, no cough present CHEST: Symmetrical movement, no accessory muscle use, good tidal volume. ABDOMEN: Soft, no distention, no epigastric or abdominal tenderness,no organomegaly, no flank or suprapubic tenderness, active bowel tones. BACK: Normal curvature, nontender to palpation, no CVA tenderness on percussion EXTREMITIES: moves all extremities, strength is 5/5 and symmetrical, Heberden's and Onesimo's nodules bilateral hands NEUROLOGIC: AAO x4, no focal neurologic deficits, cranial nerves II-XII grossly intact, sensation intact to light touch, hearing grossly normal to speech. PSYCH: Flat affect, cooperative, appropriate with stable behavior Objective Labs Result Diagrams: 09/10/20 18:25 09/10/20 18:25 Labs: Laboratory Results - last 24 hr 09/10/20 09/10/20 09/10/20 17:00 18:25 18:25 WBC 6.1 RBC 4.13 Hgb 12.5 Hct 37.3 MCV 90.4 MCH 30.2 MCHC 33.4 RDW 14.2 Plt Count 258 Neut % (Auto) 81.8 H Lymph % (Auto) 5.6 L Glades % (Auto) 12.1 Eos % (Auto) 0.3 L Baso % (Auto) 0.2 Neut # (Auto) 5000 Lymph # (Auto) 300 L Glades # (Auto) 700 Eos # (Auto) 0 Baso # (Auto) 0 D-Dimer Sodium Potassium Chloride Carbon Dioxide BUN Creatinine Estimated GFR BUN/Creatinine Ratio Glucose Hemoglobin A1c Lactate Calcium Magnesium Ferritin Total Bilirubin AST ALT Alkaline Phosphatase Lactate Dehydrogenase Total Creatine Kinase CK-MB (CK-2) CK-MB (CK-2) Rel Index Troponin I C-Reactive Protein NT-Pro-B Natriuret Pep Total Protein Albumin Globulin Albumin/Globulin Ratio Procalcitonin < 0.05 COVID-19 PCR Positive H 09/10/20 09/10/20 09/10/20 18:25 18:25 18:25 WBC RBC Hgb Hct MCV MCH MCHC RDW Plt Count Neut % (Auto) Lymph % (Auto) Glades % (Auto) Eos % (Auto) Baso % (Auto) Neut # (Auto) Lymph # (Auto) Glades # (Auto) Eos # (Auto) Baso # (Auto) D-Dimer Sodium 138 Potassium 3.9 Chloride 102 Carbon Dioxide 30 BUN 16 Creatinine 0.93 Estimated GFR 58.8 L BUN/Creatinine Ratio 17.2 Glucose 140 H Hemoglobin A1c Lactate 1.1 Calcium 8.5 Magnesium Ferritin 727 H Total Bilirubin 0.6 AST 51 H ALT 38 H Alkaline Phosphatase 80 Lactate Dehydrogenase 698 H Total Creatine Kinase 52 CK-MB (CK-2) TNP CK-MB (CK-2) Rel Index TNP Troponin I < 0.012 C-Reactive Protein 12.1 H NT-Pro-B Natriuret Pep 148 Total Protein 7.4 Albumin 3.8 Globulin 3.6 Albumin/Globulin Ratio 1.1 Procalcitonin COVID-19 PCR 09/10/20 09/10/20 09/10/20 18:25 18:25 18:25 WBC RBC Hgb Hct MCV MCH MCHC RDW Plt Count Neut % (Auto) Lymph % (Auto) Glades % (Auto) Eos % (Auto) Baso % (Auto) Neut # (Auto) Lymph # (Auto) Glades # (Auto) Eos # (Auto) Baso # (Auto) D-Dimer 428 H Sodium Potassium Chloride Carbon Dioxide BUN Creatinine Estimated GFR BUN/Creatinine Ratio Glucose Hemoglobin A1c 7.5 H Lactate Calcium Magnesium 2.0 Ferritin Total Bilirubin AST ALT Alkaline Phosphatase Lactate Dehydrogenase Total Creatine Kinase CK-MB (CK-2) CK-MB (CK-2) Rel Index Troponin I C-Reactive Protein NT-Pro-B Natriuret Pep Total Protein Albumin Globulin Albumin/Globulin Ratio Procalcitonin COVID-19 PCR Assessment & Plan Assessment & Plan narrative: This is a 74-year-old female patient who has been having worsening symptoms for 10 days including body aches cough fevers and shortness of breath. Patient tests positive for COVID screening today. No known COVID positive exposures. Risk factors include coronary artery disease diabetes and prior immunomodulation for rheumatoid arthritis. 1. Acute respiratory failure with hypoxemia. Present on admission, active. -patient complains of shortness of breath worse on exertion. Breath sounds with coarse scattered crackles in all block. -patient's SpO2 at time of admission is 88% on room air with a respiratory rate of 24. P/F ratio is 261. -the patient is without prior pulmonary history, will treat underlying cause. -which was supplemental oxygen to maintain a saturation greater than 92%. 2. Acute COVID-19 pneumonia, present on admission, active. -patient has been ill for 10 days with shortness of breath, cough, body aches fevers headache and nasal congestion. -patient tests positive for COVID-19. No known source of exposure. -order dexamethasone 6 mg daily, 1st dose administered in the emergency department. -order remdesivir 100 mg daily for for 4 doses, 1st 200 mg loading dose administered in the emergency department. -respiratory therapy to consult evaluate and treat, goal of oxygen saturations greater 92%. -no wheezing on auscultation, statistically albuterol treatment does not provide benefit. -instructed to the patient on benefits of proning, instructed prone aggressively. -ordered melatonin 6 mg at bedtime for both sleep promotion as well as potential antiviral effects. -patient is receiving heparin 5000 units twice daily for VTE prophylaxis and hypercoagulability in COVID-19 infection 3. Diabetes mellitus type 2 with hyperglycemia, present on admission, active. -patient with a history of diabetes previously treated with glimepiride might. Glucose on admission labs is 140. -the patient is being treated with steroid therapy with expectation of markedly increasing serum glucose. -ordered fingerstick blood sugars a.c. and hs, coverage with correctional insulin low-dose. -will follow glycemic trend and escalate therapy is indicated. -will obtain hemoglobin A1c. 4. Coronary artery disease, chronic, stable -patient with previous known coronary artery disease with stent placement in unknown vessel. No complaints of chest pain or palpitations. -12 lead EKG reveals sinus rhythm, rate of 76, no ectopy, left anterior fascicular block, leftward axis, no significant ST T-wave changes and no indication of infarct. -total CK is 52 and troponin is negative at less than 0.012. 5. Rheumatoid arthritis, chronic, stable -patient with moderate RA, hypertensive pressure to nodules beginning in fingers with complaints of hand wrist and ankle complications. -patient has previously been taking Xeljanz 11 mg daily which she stopped taking when she initially became ill. -patient receiving Decadron 6 mg daily which should improve RA symptoms. VTE prophylaxis: Heparin IV fluid: Saline lock Diet: Small consistent carbohydrate, heart healthy Code status: Full code, she designates Skyler Rosettepeggy to be her surrogate decision maker. The patient is admitted as inpatient status due to the severity of her presenti ng symptoms and complexity of treatment plan and risk of complications or adverse events. The patient's expected length of stay is expected to be greater than 2 midnights. COVID-19 COVID-19 status: Positive Result date/Date tested (Pos, Neg/Pending): 09/10/20 Scores GCS Malia coma scale eye opening: Spontaneous Malia coma scale verbal response: Orientated Valdez coma scale motor response: Obey commands Valdez coma scale total score: 15 Quality VTE Deep Vein Thrombosis/Pulmonary Embolism Present on Admission: No
[2020-09-10 20:42] LABS: Hemoglobin A1C% w Est Avg Glu 7.5 % (4.0-6.0)
--- NOTE | 2020-09-10 21:28 | RT ---
Asked if I could obtain an ABG for patient baseline and request was refused.
[2020-09-10] MEDS: FAMOTIDINE 20 MG/50 ML PIGGYBACK 200 MG IV (22:00)
[2020-09-10] MEDS: DOCUSATE 100 MG CAPSULE PO (22:01)
[2020-09-10] MEDS: HEPARIN 5,000 UNIT/ML VIAL 5000 UNIT SUBCUT (22:02)
[2020-09-10] MEDS: SODIUM CHLORIDE 0.9% FLUSH 10 ML IV (22:03)
[2020-09-10] MEDS: INSULIN ASPART 100 UNIT/ML INSULN PEN SUBCUT (22:37)
--- NOTE | 2020-09-10 22:50 | PC.ADMIT ---
[address] Admission Note: The patient,Joseline Pascual,74 y/o, was given written information regarding hospital policies, unit procedures and contact persons. Patient's smoking status: Never smoker. Vital Signs - 8 hr 09/10/20 17:06 09/10/20 17:11 09/10/20 17:15 Temperature 102.1 F H Pulse Rate 75 76 75 Respiratory Rate 18 Blood Pressure 133/68 133/68 Pulse Oximetry 98 98 98 09/10/20 17:30 09/10/20 17:35 09/10/20 18:00 Temperature Pulse Rate 75 76 Respiratory Rate Blood Pressure 123/65 141/63 H Pulse Oximetry 98 90 L 09/10/20 18:30 09/10/20 18:31 09/10/20 19:00 Temperature Pulse Rate 79 74 71 Respiratory Rate 24 24 24 Blood Pressure 96/51 L 111/56 L Pulse Oximetry 95 94 94 09/10/20 19:30 09/10/20 20:03 09/10/20 20:07 Temperature Pulse Rate 68 71 Respiratory Rate 22 25 H Blood Pressure 104/53 L 131/61 Pulse Oximetry 94 88 L 95 09/10/20 21:50 Temperature Pulse Rate Respiratory Rate Blood Pressure Pulse Oximetry 96 Pt arrived from ED at approx 2014. Ambulated from stretcher to bed. 2L NC Sats 95%. CPOX placed on. Oriented to room and call system. Pt verbalized she will call for needs. R.T. notified of arrival to unit. Bed alarm on. Call light within reach.
[2020-09-11] VITALS (9 sets, daily range): BP systolic 121–146; BP diastolic 61–72; PULSE 59–67; RESP 15–20; TEMP 35.9–37.2; O2SAT 90–97
--- NOTE | 2020-09-11 00:55 | PC.NURSE ---
Patient seen and assessed at 2344. Is alert and oriented but somewhat anxious. Breath sounds diminished throughout but CTA. Oxygen at 4L/min per NC with sat of 95%; on continuous oximetry. Denies SOB either at rest or with exertion. Has cough which she states is sometimes productive of small amounts clear sputum. HRR; telemetry reading was SR w/1st degree AVB. Denies nausea. BT present and abdomen is soft. Denies dysuria, frequency or urgency with urination. Moving self in bed. Able to get up to bathroom independently but requested she call for assistance. Complains of 6/10 headache but declines pain medication. Wearing bilateral calf SCD's. Maintained on isolation as is COVID positive. Fall risk score is low.
[2020-09-11 05:00] LABS: Add Manual Diff / Slide Review NO; Basophils Absolute Auto 0 /uL (0-100); Basophils Percent Auto 0.2 % (0-2); Eosinophils Absolute Auto 0 /uL (0-450); Hematocrit 36.7 % (36-46); Hemoglobin 11.9 g/dL (12.0-16.0); Lymphocytes Absolute Auto 300 /uL (1100-4500); Lymphocytes Percent Auto 4.9 % (25-40); Mean Corpuscular HGB Conc 32.5 % (30-36); Mean Corpuscular Hemoglobin 29.7 PG (26-34); Mean Corpuscular Volume 91.1 fL (80-100); Monocytes Absolute Auto 400 /uL (0-900); Monocytes Percent Auto 7.4 % (3-14); Neutrophils Absolute Auto 4600 /uL (1500-7000); Neutrophils Percent Auto 87.5 % (50-75); Platelet Count 253 X10^3/uL (150-400); Red Blood Cell Count 4.03 X10^6/uL (4.0-5.2); Red Cell Distribution Width 14.1 % (11.6-14.8); White Blood Cell Count 5.2 X10^3/uL (4.5-11.0)
[2020-09-11 05:04] LABS: Alanine Aminotransferase 35 IU/L (<35); Albumin 3.4 g/dL (3.5-5.0); Albumin Globulin Ratio 0.9 (1.0-2.8); Alkaline Phosphatase 72 U/L (38-126); Aspartate Aminotransferase 42 IU/L (14-36); BUN Creatinine Ratio 21.2 (6-22); Bilirubin Total 0.5 mg/dL (0.2-1.3); Blood Urea Nitrogen 18 mg/dL (7-17); Calcium 8.6 mg/dL (8.4-10.2); Carbon Dioxide 32 mmol/L (22-32); Chloride 104 mmol/L (98-107); Estimated Glomerular Filt Rate > 60.0 mL/min (>60); Globulin 3.6 g/dL (1.7-4.1); Glucose 233 mg/dL (80-110); HEMOLYSIS < 15 (0-50); Potassium 4.8 mmol/L (3.4-5.1); Sodium 137 mmol/L (137-145)
[2020-09-11] MEDS: DEXAMETHASONE 10 MG/ML VIAL 6 MG IV (08:43)
[2020-09-11] MEDS: FAMOTIDINE 20 MG/50 ML PIGGYBACK 200 MG IV (08:43)
[2020-09-11] MEDS: HEPARIN 5,000 UNIT/ML VIAL 5000 UNIT SUBCUT ×2 (08:44→20:59)
[2020-09-11] MEDS: SODIUM CHLORIDE 0.9% FLUSH 10 ML IV (08:44)
[2020-09-11] MEDS: CHOLECALCIFEROL (VITAMIN D3) 1,000 UNIT TABLET 1000 UNIT PO (08:44)
[2020-09-11] MEDS: DOCUSATE 100 MG CAPSULE PO ×2 (08:44→21:00)
[2020-09-11] MEDS: ASPIRIN 81 MG CHEW TAB PO (08:44)
[2020-09-11] MEDS: AMLODIPINE 5 MG TABLET PO (08:45)
[2020-09-11] MEDS: INSULIN ASPART 100 UNIT/ML INSULN PEN SUBCUT ×4 (08:54→20:49)
--- NOTE | 2020-09-11 10:45 | PC.NURSE ---
Addendum entered by Fartun Kramer R.N. 09/11/20 14:16: Prone position while sleeping or in bed. Patient wanted to shower this shift, however bed bath was provided due to generalized weakness and fatigue. Patient to use FWW/SBA to BR for safety. Calls appropriately for staff assist. Addendum entered by Fartun Kramer R.N. 09/11/20 10:51: Dr. Fonseca at patients bedside this am, placed on RA. Will continue to monitor saturations and WOB. Original Note: Day shift note: Patient awake, alert, and calm this morning. Sitting up for breakfast, states this is the first time she has an appetite and eating solids in some time. No C/O headache, or body aches. VSS and afebrile. Received at 2L via NC, O2 sat 95%. Intermittent productive cough noted. O2 decreased to 1L via NC, sats remain 95%, no change or increase in work of breathing. Patient states overall feels better than the previous day, as far as appetite, body aches, and breathing effort. However, still feels weak. Call light within reach.
--- NOTE | 2020-09-11 11:32 | P.PN_ITS ---
Subjective Subjective Date Patient Seen: 09/11/20 Time Patient Seen: 11:32 Interval history: Ms. Joseline Pascual is a 74-year-old female with a past medical history significant for coronary artery disease status post stenting, diabetes type 2 non-insulin dependent, hyperlipidemia, GERD and rheumatoid arthritis who was admitted for acute hypoxemic respiratory failure secondary to COVID-19 pneumonia. She is feeling symptomatically improved this morning but still feels congested with a cough. She denies any chest pain or palpitations. She does have some mild diarrhea and nausea but is overall feeling improved and slightly stronger. During my examination this morning I was able to shut off her supplemental oxygen while she was sitting upright and she was able to maintain her O2 saturations between 91 and 94%. She plans to get up and move but she still appears very weak and given her risk factors including type 2 diabetes she will be monitored for further progression of her disease. Exam Vital Signs (past 8 hours): - 09/11/20 09:01 Temperature 96.7 F L Pulse Rate 67 Respiratory Rate 15 Blood Pressure 128/72 Pulse Oximetry 95 Oxygen Delivery Method Room Air Oxygen Flow Rate 2 Narrative Exam Narrative: GENERAL APPEARANCE: well developed, adequately nourished, ill- appearing female. HEENT: Normocephalic, PERRLA, conjunctiva clear, EOMs intact without nystagmus, no sinus tenderness to percussion, mucous membranes are moist and pink. NECK/THYROID: neck supple, no JVD, no carotid bruit, no thyromegaly, trachea midline. LYMPH NODES: no cervical or supraclavicular lymphadenopathy. SKIN: [place], warm and dry, no visible lesions, rashes, ulcerations or petechiae. HEART: regular rate and rhythm, S1-S2, no murmur, no rubs or gallops, brisk capillary refill, no edema LUNGS: Breath sounds with scattered crackles in all block common no wheezing, no cough present CHEST: Symmetrical movement, no accessory muscle use, good tidal volume. ABDOMEN: Soft, no distention, no epigastric or abdominal tenderness,no organomegaly, no flank or suprapubic tenderness, active bowel tones. BACK: Normal curvature, nontender to palpation, no CVA tenderness on percussion EXTREMITIES: moves all extremities, strength is 5/5 and symmetrical, Heberden's and Onesimo's nodules bilateral hands NEUROLOGIC: AAO x4, no focal neurologic deficits, cranial nerves II-XII grossly intact, sensation intact to light touch, hearing grossly normal to speech. PSYCH: Flat affect, cooperative, appropriate with stable behavior Objective Labs Result Diagrams: 09/11/20 04:40 09/11/20 04:40 Labs: Laboratory Results - last 24 hr 09/10/20 09/10/20 09/10/20 17:00 18:25 18:25 WBC 6.1 RBC 4.13 Hgb 12.5 Hct 37.3 MCV 90.4 MCH 30.2 MCHC 33.4 RDW 14.2 Plt Count 258 Neut % (Auto) 81.8 H Lymph % (Auto) 5.6 L [place] % (Auto) 12.1 Eos % (Auto) 0.3 L Baso % (Auto) 0.2 Neut # (Auto) 5000 Lymph # (Auto) 300 L [place] # (Auto) 700 Eos # (Auto) 0 Baso # (Auto) 0 D-Dimer Sodium Potassium Chloride Carbon Dioxide BUN Creatinine Estimated GFR BUN/Creatinine Ratio Glucose Hemoglobin A1c Lactate Calcium Magnesium Ferritin Total Bilirubin AST ALT Alkaline Phosphatase Lactate Dehydrogenase Total Creatine Kinase CK-MB (CK-2) CK-MB (CK-2) Rel Index Troponin I C-Reactive Protein NT-Pro-B Natriuret Pep Total Protein Albumin Globulin Albumin/Globulin Ratio Procalcitonin < 0.05 COVID-19 PCR Positive H 09/10/20 09/10/20 09/10/20 18:25 18:25 18:25 WBC RBC Hgb Hct MCV MCH MCHC RDW Plt Count Neut % (Auto) Lymph % (Auto) [place] % (Auto) Eos % (Auto) Baso % (Auto) Neut # (Auto) Lymph # (Auto) [place] # (Auto) Eos # (Auto) Baso # (Auto) D-Dimer Sodium 138 Potassium 3.9 Chloride 102 Carbon Dioxide 30 BUN 16 Creatinine 0.93 Estimated GFR 58.8 L BUN/Creatinine Ratio 17.2 Glucose 140 H Hemoglobin A1c Lactate 1.1 Calcium 8.5 Magnesium Ferritin 727 H Total Bilirubin 0.6 AST 51 H ALT 38 H Alkaline Phosphatase 80 Lactate Dehydrogenase 698 H Total Creatine Kinase 52 CK-MB (CK-2) TNP CK-MB (CK-2) Rel Index TNP Troponin I < 0.012 C-Reactive Protein 12.1 H NT-Pro-B Natriuret Pep 148 Total Protein 7.4 Albumin 3.8 Globulin 3.6 Albumin/Globulin Ratio 1.1 Procalcitonin COVID-19 PCR 09/10/20 09/10/20 09/10/20 18:25 18:25 18:25 WBC RBC Hgb Hct MCV MCH MCHC RDW Plt Count Neut % (Auto) Lymph % (Auto) [place] % (Auto) Eos % (Auto) Baso % (Auto) Neut # (Auto) Lymph # (Auto) [place] # (Auto) Eos # (Auto) Baso # (Auto) D-Dimer 428 H Sodium Potassium Chloride Carbon Dioxide BUN Creatinine Estimated GFR BUN/Creatinine Ratio Glucose Hemoglobin A1c 7.5 H Lactate Calcium Magnesium 2.0 Ferritin Total Bilirubin AST ALT Alkaline Phosphatase Lactate Dehydrogenase Total Creatine Kinase CK-MB (CK-2) CK-MB (CK-2) Rel Index Troponin I C-Reactive Protein NT-Pro-B Natriuret Pep Total Protein Albumin Globulin Albumin/Globulin Ratio Procalcitonin COVID-19 PCR 09/11/20 09/11/20 04:40 04:40 WBC 5.2 RBC 4.03 Hgb 11.9 L Hct 36.7 MCV 91.1 MCH 29.7 MCHC 32.5 RDW 14.1 Plt Count 253 Neut % (Auto) 87.5 H Lymph % (Auto) 4.9 L [place] % (Auto) 7.4 Eos % (Auto) 0.0 L Baso % (Auto) 0.2 Neut # (Auto) 4600 Lymph # (Auto) 300 L [place] # (Auto) 400 Eos # (Auto) 0 Baso # (Auto) 0 D-Dimer Sodium 137 Potassium 4.8 Chloride 104 Carbon Dioxide 32 BUN 18 H Creatinine 0.85 Estimated GFR > 60.0 BUN/Creatinine Ratio 21.2 Glucose 233 H Hemoglobin A1c Lactate Calcium 8.6 Magnesium Ferritin Total Bilirubin 0.5 AST 42 H ALT 35 H Alkaline Phosphatase 72 Lactate Dehydrogenase Total Creatine Kinase CK-MB (CK-2) CK-MB (CK-2) Rel Index Troponin I C-Reactive Protein NT-Pro-B Natriuret Pep Total Protein 7.0 Albumin 3.4 L Globulin 3.6 Albumin/Globulin Ratio 0.9 L Procalcitonin COVID-19 PCR [facility] Medical History Coronary artery disease GERD (gastroesophageal reflux disease) Hyperlipidemia Rheumatoid arthritis Type 2 diabetes mellitus Surgical History History of coronary artery stent placement Social History household members: significant other Smoking Status: Never smoker alcohol intake: current Assessment & Plan Assessment & Plan narrative: This is a 74-year-old female patient who has been having worsening symptoms for 10 days including body aches cough fevers and shortness of breath. Patient tests positive for COVID screening today. No known COVID positive exposures. Risk factors include coronary artery disease diabetes and prior immunomodulation for rheumatoid arthritis. 1. Acute respiratory failure with hypoxemia. Present on admission, improved -patient complains of shortness of breath worse on exertion. Breath sounds with coarse scattered crackles in all block. -patient's SpO2 at time of admission is 88% on room air with a respiratory rate of 24. -continue supplemental oxygen to maintain a saturation greater than 90%. Was ab le to stop supplemental oxygen this AM at rest. Will continue to assess with activity. 2. Acute COVID-19 pneumonia, present on admission, active. -patient has been ill for 10 days with shortness of breath, cough, body aches fevers headache and nasal congestion. Now with diarrhea as well. -patient tests positive for COVID-19. No known source of exposure. Elderly male lives with her, 82, also with a head cold. -continue dexamethasone 6 mg daily x10 days or until discharge. 1st dose administered in the emergency department. -continue remdesivir 100 mg daily for for 5 days with a max of 10 days or until discharge, 1st 200 mg loading dose administered in the emergency department. -appreciate respiratory therapy assistance. Goal O2 as noted above. -instructed to the patient on benefits of proning, instructed prone aggressively for 16 hours per day ideally. can assist with pain control if needed for proning. -ordered melatonin 6 mg at bedtime for both sleep promotion. -patient is receiving heparin 5000 units twice daily for VTE prophylaxis and hypercoagulability in COVID-19 infection 3. Diabetes mellitus type 2 with hyperglycemia, present on admission, active. -patient with a history of diabetes previously treated with glimepiride Glucose on admission labs is 140. -the patient is being treated with steroid therapy with expectation of markedly increasing serum glucose. -ordered fingerstick blood sugars a.c. and hs, coverage with correctional insulin low-dose. -will follow glycemic trend and escalate therapy is indicated. -A1c 7.5% on admission. 4. Coronary artery disease, chronic, stable -patient with previous known coronary artery disease with stent placement in unknown vessel. No complaints of chest pain or palpitations. -12 lead EKG reveals sinus rhythm, rate of 76, no ectopy, left anterior fascicular block, leftward axis, no significant ST T-wave changes and no ind ication of infarct. -total CK is 52 and troponin is negative at less than 0.012. 5. Rheumatoid arthritis, chronic, stable -patient with moderate RA, hypertensive pressure to nodules beginning in fingers with complaints of hand wrist and ankle complications. -patient has previously been taking Xeljanz 11 mg daily which she stopped taking when she initially became ill. Will continue to hold -patient receiving Decadron 6 mg daily which should improve RA symptoms. VTE prophylaxis: Heparin IV fluid: Saline lock Diet: Small consistent carbohydrate, heart healthy Code status: Full code, she designates Skyler Rosettepeggy to be her surrogate decision maker. The patient is admitted as inpatient status. Possible discharge tomorrow if she is no longer requiring oxygen and her weakness is improved. COVID-19 COVID-19 status: Positive Result date/Date tested (Pos, Neg/Pending): 09/10/20 Quality VTE Deep Vein Thrombosis/Pulmonary Embolism Present on Admission: No
--- NOTE | 2020-09-11 13:26 | CM.DANOTE ---
DCP: Case received, EMR reviewed and met with patient. Patient is COVID 19 positive, and was able to obtain information from nurse, Deepa, for baseline activity information, as well as living situation. Also, was able to review her EMR for additional information. DCP assessment completed with information currently available. Patient is a 74 year old female who admitted yesterday afternoon to the care of the hospitalist team. PCP: Dr. Ochoa. Payer: confirmed: Medicare/[id number] [employer] [facility]. Patient came to the hospital via private vehicle secondary to having nasal congestion, as well as a cough and dyspnea. Patient was noted to have bilateral infiltration of her lungs on CXR, and diagnosed with COVID 19 pneumonia. She is in isolation in her room. Patient also has history of diabetes type 2. Due to isolation precautions, was able to obtain information from her nurse, Deepa, who just came out of patient's room. Patient is independent at baseline, and resides in [facility] with her significant other, Skyler Montano. This interstate planner had originally attempted to call patient's room, but she did not answer, so was able to obtain from her nurse. She uses no assisted devices, and drives. P: DCP to continue to follow for any needs. Patient should be able to go home when she is medically stable, and hypoxemia resolves. Aline Johnson RN/Engineering Mgr
[2020-09-11] MEDS: SIMVASTATIN 20 MG TABLET PO (20:59)
[2020-09-11] MEDS: REMDESIVIR 100 MG in SODIUM CHLORIDE 0.9% 230 ML 250 ML IV (21:00)
[2020-09-11] MEDS: MELATONIN 3 MG TABLET 6 MG PO (21:00)
[2020-09-12 01:30] VITALS: BP 143/71; PULSE 60; RESP 20; TEMP 36; O2SAT 96
[2020-09-12] MEDS: ACETAMINOPHEN 325 MG TABLET 650 MG PO (02:13)
[2020-09-12] MEDS: diphenhydrAMINE 25 MG TABLET PO (02:13)
--- NOTE | 2020-09-12 02:22 | PC.NURSE ---
Addendum entered by Barbie Rico R.N. 09/12/20 05:50: Decreased oxygen earlier to RA and patient sat maintaining 92-92% at rest. When up to bathroom then back to bed and initial sat after activity was 94%. Original Note: Patient seen and assessed. Is alert and oriented. Breath sounds diminished but CTA; oxygen initially at 2L/min with sat of 96% so decreased to 1L/min with sat of 93% so now decreased to 0.5L/min per NC; on continuous oximetry to monitor oxygenation. States she is still feeling a little SOB with activity but not at rest. States she is coughing more frequently with small amounts clear sputum produced about every 3rd cough. HRR. BP elevated at 143/71. Denies nausea. BT present and is passing flatus; denies further diarrhea. Complains of a little burning and urgency with urination; urine is clear yellow. Is able to move herself in bed. Up to bathroom with SBA for safety. Had refused SCD's at shift change but now agreeable to having them put back on. Complains of itching related to bed linens/gown stating she is very sensitive; TOYA Tillman, informed and order received for Benadryl which was given. Complains of 4/10 headache and agreeable tonight to take Tylenol. CBG = 188. Remains on isolation precautions due to being positive for COVID. Fall risk score is moderate and bed alarm is activated.
[2020-09-12 03:00] VITALS: O2SAT 98
[2020-09-12 03:24] VITALS: O2SAT 92
[2020-09-12 05:25] VITALS: BP 115/58; PULSE 53; RESP 16; TEMP 36.1; O2SAT 94
--- NOTE | 2020-09-12 07:55 | P.DS_ITS ---
History of Present Illness History of Present Illness Date Patient Seen: 09/12/20 Time Patient Seen: 07:56 Chief complaint: Head cold that is worsening Narrative: As per TOYA Wang: Ms. Joseline Pascual is a 74-year-old female with a past medical history significant for coronary artery disease status post stenting, diabetes type 2 non-insulin dependent, hyperlipidemia, GERD and rheumatoid arthritis who presents to the ER for worsening head cold. The patient states she has been ill since Thanksgiving approximately 10 days. Patient states she has been steadily feeling worse with associated generalized weakness and malaise, body aches and cough, fevers, headaches, shortness of breath and nasal congestion. She reports reduced appetite and has been drinking large amounts of Gatorade remain hydrated. She describes her symptoms beginning in her head moving into her chest. The patient has tried [id number] remedies without benefit. Patient does have history rheumatoid arthritis and is not currently taking steroids but has been on immune modulator medication Xeljanz daily until becoming ill. Patient endorses headache but denies dizziness or sore throat. She denies complaints of chest pain or palpitations and has shortness of breath worsened by exertion and a cough that is intermittently productive for clear sputum. She reports no appetite and denies nausea vomiting. She reports no epigastric or abdominal pain with history of GERD. She denies changes in urination and does report having irritable bowel syndrome and has tendency towards constipation. She has been ambulatory without assistive devices but has complications of rheumatoid arthritis for mostly in her hands wrists and ankles. Upon arrival ER the patient's temperature of 102.1?, heart rate of 75, blood pressure 133/68, respiratory rate of 18 saturating it 90% on room air. Chest x- ray is obtained finding bilateral peripheral infiltrates, bilateral pneumonia. On laboratory analysis he has white count of 6.1 with increased neutrophils 81.8%, hemoglobin of 12.5, hematocrit of 37.3 and platelets of 258. Her electrolytes are all within normal limits she has a BUN of 16 and creatinine 0.93. Her nonfasting glucose is 140. She has a total bilirubin of 0.6, AST 51 ALT of 38 and alkaline phosphatase of 80. His lactic acid of 1.1 and procalcitonin less than 0.05. She has positive markers of D-dimer at 428, CRP of 12.1, ferritin 727, LDH of 698. She has a total CK of 52 and troponin that is negative at less than 0.012. COVID 19 screening is positive. While in the ER room air saturation was recheck to found to be 88%. Patient continued on oxygen and administered dexamethasone 6 mg and remdesivir 200 mg IV. The patient is admitted to the hospital service for COVID-19 pneumonia. Discharge Providers Provider Date of admission: 09/10/20 20:05 Discharge Date: 09/12/20 Primary care physician: Kalpesh Ochoa MD Consults: 09/10/20 20:22 Consult to Discharge Planning Routine Comment: Discharge provider: Ean Fonseca DO Summary Hospital Course Discharge Diagnosis: 1. Acute respiratory failure with hypoxemia. Present on ad mission, resolved 2. Acute COVID-19 pneumonia, present on admission, improved 3. Diabetes mellitus type 2 with hyperglycemia, present on admission, active. 4. Coronary artery disease, chronic, stable 5. Rheumatoid arthritis, chronic, stable Hospital Course: This is a 74-year-old female patient with a past medical history of type 2 diabetes coronary artery disease, and rheumatoid, arthritis on immunomodulation who was admitted for acute respiratory failure secondary to COVID 19. She received remdesivir and dexamethasone therapy until discharge on HD#2. Her acute respiratory failure was short lived and the patient was discharged home when she symptomatically improved. At most she required 2 L of supplemental oxygen. Status at Discharge Cognitive/behavioral status at discharge: oriented Exam Vital Signs (past 8 hours): - 09/12/20 01:30 09/12/20 03:00 09/12/20 03:24 Temperature 96.8 F L Pulse Rate 60 Respiratory Rate 20 Blood Pressure 143/71 H Pulse Oximetry 96 98 92 09/12/20 05:25 Temperature 96.9 F L Pulse Rate 53 L Respiratory Rate 16 Blood Pressure 115/58 L Pulse Oximetry 94 Oxygen Delivery Method Room Air Oxygen Flow Rate 0 Narrative Exam Narrative: GENERAL APPEARANCE: well developed, adequately nourished, ill- appearing female. HEENT: Normocephalic, PERRLA, conjunctiva clear, EOMs intact without nystagmus, no sinus tenderness to percussion, mucous membranes are moist and pink. NECK/THYROID: neck supple, no JVD, no carotid bruit, no thyromegaly, trachea midline. LYMPH NODES: no cervical or supraclavicular lymphadenopathy. SKIN: [place], warm and dry, no visible lesions, rashes, ulcerations or petechiae. HEART: regular rate and rhythm, S1-S2, no murmur, no rubs or gallops, brisk capillary refill, no edema LUNGS: Breath sounds with scattered crackles in all block common no wheezing, no cough present CHEST: Symmetrical movement, no accessory muscle use, good tidal volume. ABDOMEN: Soft, no distention, no epigastric or abdominal tenderness,no or ganomegaly, no flank or suprapubic tenderness, active bowel tones. BACK: Normal curvature, nontender to palpation, no CVA tenderness on percussion EXTREMITIES: moves all extremities, strength is 5/5 and symmetrical, Heberden's and Onesimo's nodules bilateral hands NEUROLOGIC: AAO x4, no focal neurologic deficits, cranial nerves II-XII grossly intact, sensation intact to light touch, hearing grossly normal to speech. PSYCH: Flat affect, cooperative, appropriate with stable behavior Objective Labs Result Diagrams: 09/11/20 04:40 09/11/20 04:40 [facility] Medical History Coronary artery disease GERD (gastroesophageal reflux disease) Hyperlipidemia Rheumatoid arthritis Type 2 diabetes mellitus Surgical History History of coronary artery stent placement Social History household members: significant other Smoking Status: Never smoker alcohol intake: current Discharge Plan Discharge Plan Patient Disposition: Home Provider Discharge Comment: You were admitted to the hospital with covid-19 pneumonia. You improved with antivirals and steroids. These were discontinued when you were no longer requiring oxygen. Please continue to isolate at home for at least 21 days after your first symptoms and you are asymptomatic for at least 7 days. No medication changes are recommended. Discharge orders & Medications Prescriptions: Continued glimepiride 2 mg tablet RF: 0 potassium 99 mg Tablet RF: 0 simvastatin 20 mg Tablet 20 mg PO BEDTIME RF: 0 aspirin [Concepcion Chewable Aspirin] 81 mg Tablet,Chewable 81 mg PO DAILY RF: 0 vitamin B complex Capsule 1 cap PO DAILY RF: 0 cholecalciferol (vitamin D3) 50 mcg (2,000 unit) Capsule 50 mcg PO DAILY RF: 0 Dexilant 60 mg Capsule,Biphase Delayed Releas 60 mg PO DAILY RF: 0 Xeljanz XR 11 mg Tablet Extended Release 24 Hr 11 mg PO Q24H RF: 0 nitroglycerin 0.3 mg Tablet, Sublingual 0.3 mg SUBLINGUAL Q5-15M PRN (Reason: Chest Pain) RF: 0 prednisone 5 mg Tablet 5 mg PO TAPER PRN (Reason: RA flare up ) RF: 0 amlodipine 5 mg Tablet 5 mg PO DAILY 30 Days Qty: 30 RF: 0 Follow up/Referrals: Kalpesh Ochoa MD [Primary Care Provider] - Diet/Activity/Treatments Diet: Diet as Tolerated, Carb-consistent/Diabetic and Low-sodium Activity: As tolerated Discharge Data Primary Care Provider: Kalpesh Ochoa Quality VTE Deep Vein Thrombosis/Pulmonary Embolism Present on Admission: No
[2020-09-12 09:02] VITALS: BP 106/54; PULSE 57; RESP 19; TEMP 36.6; O2SAT 94
--- NOTE | 2020-09-12 09:16 | CM.DPC ---
Addendum entered by June Benjamin LPN 09/12/20 09:20: Checked in with FABIOLA Willoughby. She will be completing the d/c paperwork and reports she expects that pt's partner Skyler Montano (who delivered clothes and phone gluer machine operator to pt yesterday) will be picking her up at d/c. She will notify this DCplanner if any assist is needed. Original Note: DCP: continued: case received, d/c orders and DCP assessment reviewed. Pt has been ok'd for home setting and continued quarantine as she recovers from COVID 19. P: home today.
[2020-09-12] MEDS: ASPIRIN 81 MG CHEW TAB PO (09:54)
[2020-09-12] MEDS: AMLODIPINE 5 MG TABLET PO (09:54)
[2020-09-12] MEDS: CHOLECALCIFEROL (VITAMIN D3) 1,000 UNIT TABLET 1000 UNIT PO (09:55)
[2020-09-12] MEDS: HEPARIN 5,000 UNIT/ML VIAL 5000 UNIT SUBCUT (09:55)
[2020-09-12] MEDS: DOCUSATE 100 MG CAPSULE PO (09:55)
[2020-09-12] MEDS: DEXLANSOPRAZOLE 60 MG 60 EACH PO (09:56)
[2020-09-12] MEDS: DEXAMETHASONE 10 MG/ML VIAL 6 MG IV (09:56)
[2020-09-12] MEDS: INSULIN ASPART 100 UNIT/ML INSULN PEN SUBCUT (09:57)
[2020-09-12 13:00] VITALS: O2SAT 94
--- NOTE | 2020-09-12 13:45 | PC.NURSE ---
Day shift note: Patient awake, alert, and pleasantly cooperative. Up OOB to BR, O2 sat 90-91% with activity, 94-95% at rest. No c/o headache or nausea. Reports having more energy than previous day. VSS and afebrile. Appetite improving. Discharged home per MD order, discussed importance of F/U with PMD, 21 days of isolation quarantine, and an additional 7 days while asymptomatic. Verbalized understanding of quarantine precautions. Discussed importance of F/U if worsening symptoms. Home via private vehicle.
== END 2020-09-12 13:05 | disposition home or self-care (01) | DRG 177 ==
LOC: ED 19:58 → AC 20:08
PROVIDERS: Emergency Medicine; Admitting Provider Nurse Practitioner Adult Health; Emergency Provider Emergency Medicine; PCP Internal Medicine; Referring Provider Emergency Medicine; Visit Provider Nurse Practitioner Adult Health
DX: U07.1 COVID-19 (principal); J12.89 Other viral pneumonia; J96.01 Acute respiratory failure with hypoxia; M06.9 Rheumatoid arthritis, unspecified; E13.65 Other specified diabetes mellitus with hyperglycemia; I25.10 Atherosclerotic heart disease of native coronary artery without angina pectoris; E78.5 Hyperlipidemia, unspecified; K21.9 Gastro-esophageal reflux disease without esophagitis; Z95.5 Presence of coronary angioplasty implant and graft
CPT/HCPCS: 36415; 71045; 80053; 82550; 82728; 82962; 83036; 83605; 83615; 83735; 83880; 84145; 84484; 85025; 85379; 86140; 87040; 87635; 93005; 94762; 96361; 96365; 96375; 99284; 99285; J1100; J1644

== ENCOUNTER 2020-09-14 14:10 | Emergency (ER) | payer MEDICARE, BC, SELFPAY ==
[2020-09-10 20:13] VITALS: BMI 26.6
[2020-09-14 14:10] VITALS: BP 134/61; PULSE 71; RESP 18; TEMP 36.7; O2SAT 92; BMI 24.9
--- NOTE | 2020-09-14 14:39 | DI.RAD.S_ITS ---
PROCEDURE: XR CHEST 1V INDICATIONS: known COVID with worsening SOB TECHNIQUE: One view of the chest was acquired. COMPARISON: [facility], CR, XR CHEST 1V, 09/10/2020, 18:00. FINDINGS: Surgical changes and devices: None. Lungs and pleura: No pleural effusion or pneumothorax. There are persistent right upper and lower lobe peripheral opacities with slightly more consolidative appearance. There also mild peripheral opacity in the left mid lung, unchanged. No definite new focal consolidation. Scattered scarring/atelectasis. Mediastinum: Mediastinal contours appear normal. Heart size is normal. Bones and chest wall: No suspicious bony lesions. Overlying soft tissues appear unremarkable. IMPRESSION: Persistent bilateral opacities, slightly worsened on the right since 09/10/20. No new focal consolidation Dictated by: Tayo Lamar M.D. on 09/14/2020 at 15:15 Approved by: Tayo Lamar M.D. on 09/14/2020 at 15:17
[2020-09-14 14:40] VITALS: PULSE 61; O2SAT 98
[2020-09-14 15:12] LABS: Add Manual Diff / Slide Review NO; Basophils Absolute Auto 100 /uL (0-100); Basophils Percent Auto 0.6 % (0-2); Eosinophils Absolute Auto 100 /uL (0-450); Eosinophils Percent Auto 0.9 % (2-4); Hematocrit 35.6 % (36-46); Hemoglobin 11.8 g/dL (12.0-16.0); Lymphocytes Absolute Auto 900 /uL (1100-4500); Lymphocytes Percent Auto 8.4 % (25-40); Mean Corpuscular HGB Conc 33.2 % (30-36); Mean Corpuscular Hemoglobin 29.8 PG (26-34); Mean Corpuscular Volume 89.8 fL (80-100); Monocytes Absolute Auto 1400 /uL (0-900); Monocytes Percent Auto 13.3 % (3-14); Neutrophils Absolute Auto 7800 /uL (1500-7000); Neutrophils Percent Auto 76.8 % (50-75); Platelet Count 311 X10^3/uL (150-400); Red Blood Cell Count 3.96 X10^6/uL (4.0-5.2); Red Cell Distribution Width 14.1 % (11.6-14.8); White Blood Cell Count 10.2 X10^3/uL (4.5-11.0)
--- NOTE | 2020-09-14 15:14 | ED_ITS ---
HPI - URI/Sore Throat <TOYA Shepherd - Last Filed: 09/14/20 17:34> General Chief Complaint: Upper Respiratory Symptoms Stated Complaint: +Covid Time Seen by Provider: 09/14/20 14:30 Source: patient Mode of arrival: Wheelchair Limitations: no limitations History of Present Illness HPI Narrative: This is a 74 year female, nonsmoker, has past medical history significant for cardiac stent, diabetes and recent COVID-19 infection who was admitted to the hospital 4 days ago and was discharged to home 2 days ago with acute respiratory failure with hypoxemia and COVID pneumonia presents to ED with chief complain of generalized weakness and short of breath. Patient reports short of breath worse with exertion and pleuritic bilateral chest discomfort. Patient had loose stools and incontinence once today with coughing fit but does not have incontinence or frequent diarrhea. Patient denies sore throat, rhinorrhea but mild headache. Patient denies vomiting or urinary symptoms. She reports anorexia and has tried to hydrate herself well with Gatorade and water and drinks about 2 bottles of 20 oz of liquid. Patient denies abdominal pain or back pain. Patient reports when she was here 4 days ago her symptoms were worst and slightly worsening symptoms as compared to when she was discharged to home 2 days ago. Related Data Home Medications Medication Instructions Recorded Confirmed Dexilant 60 mg PO DAILY 09/10/20 09/10/20 Xeljanz XR 11 mg PO Q24H 09/10/20 09/10/20 aspirin [Concepcion Chewable Aspirin] 81 mg PO DAILY 09/10/20 09/10/20 cholecalciferol (vitamin D3) 50 mcg PO DAILY 09/10/20 09/10/20 glimepiride mg 09/10/20 nitroglycerin 0.3 mg SUBLINGUAL Q5-15M PRN 09/10/20 09/10/20 potassium mg 09/10/20 prednisone 5 mg PO TAPER PRN 09/10/20 09/10/20 simvastatin 20 mg PO BEDTIME 09/10/20 09/10/20 vitamin B complex 1 cap PO DAILY 09/10/20 09/10/20 Previous Rx's Medication Instructions Recorded amlodipine 5 mg PO DAILY 30 Days #30 tab 09/12/20 Allergies Allergy/AdvReac Type Severity Reaction Status Date / Time Sulfa (Sulfonamide Allergy Anaphylaxis Verified 09/10/20 17:17 Antibiotics) codeine AdvReac Verified 09/10/20 17:17 diazepam [From Valium] AdvReac Hallucinati Verified 09/10/20 17:17 ng oxycodone AdvReac Verified 09/10/20 17:17 Review of Systems <TOYA Shepherd - Last Filed: 09/14/20 17:34> Review of Systems Narrative: General: Denies fever, chills, (+) fatigue, malaise, sweats. HEENT: Denies sinus pain, ear pain, sore throat, difficulty swallowing, dizziness. Respiratory: See HPI Cardiovascular: Denies (+) pleuritic chest pain with cough, palpitations, orthopnea, edema. Gastrointestinal: Denies nausea, vomiting, abdominal pain, (+) 1 episode diarrhea and incontinence with coughing fit, constipation, melena. : Denies dysuria, frequency, incontinence, hematuria, urinary retention. Musculoskeletal: See HPI Skin: Denies rash, skin lesions, or other. Neurologic: Denies weakness, headache, numbness, change in speech, confusion, seizures, incoordination. Psychiatric: No concerning psychosocial issues. 12-point review of systems is negative except for those stated above. Patient History <TOYA Shepherd - Last Filed: 09/14/20 17:34> Medical History Coronary artery disease GERD (gastroesophageal reflux disease) Hyperlipidemia Rheumatoid arthritis Type 2 diabetes mellitus Surgical History History of coronary artery stent placement Social History household members: significant other Smoking Status: Never smoker alcohol intake: current Smoking Status: Never smoker alcohol intake frequency: 0-2 drinks per day Substance Use Type: does not use Exam <TOYA Shepherd - Last Filed: 09/14/20 17:34> Narrative Exam Narrative: GEN: Alert, oriented x 3, well nourished, and in no acute distress. Head: Normal cephalic, atraumatic. No scalp or temporal tenderness, palpable mass or rash. EYES: Pupils are equal, round, and reactive to light and accommodation. Extraocular muscles are intact bilaterally. There is no subconjunctival hemorrhage, exudate and sclera non-icteric. ENT: Hearing grossly intact. Nose without bleeding, purulent discharge or deviation. Mucous membrane slightly dry, no mucosal lesion. Throat without erythema, tonsillar hypertrophy or exudate. Uvula in midline, airway patent. Neck: Trachea in midline. No JVD, non-tender without lymphadenopathy. No masses or thyroid megaly. Supple, non-tender and no meningeal signs. CARDIAC: Normal regular rate and rhythm without murmurs, gallops, or rubs. No chest wall tenderness. No peripheral edema, cyanosis or pallor. Capillary refill is less than 2 seconds. RESPIRATORY: Lungs are clear in upper lobes. Mild crackles in bilateral lower lobes. No cough, wheezes, rales, or rhonchi. No stridor, respiratory distress, increase work of breathing, or accessary muscle used at rest. O2 said at 96 person on 2 L nasal cannula. Upon arrival in room air, O2 sat 91%. ABD: Abdomen soft, nontender and non-distended. No guarding or rebound tenderness to palpate. Bowel sounds are normal in all 4 quadrants. There is no palpable masses or organomegaly. EXT: Full painless ROM of all extremities with no loss of sensation, strength, effusion or edema. SKIN: Warm, dry, normal color for patient. No erythema, lesions or rash over visible areas. BACK: Nontender without deformity or crepitance. No flank tenderness. NEUROLOGICAL: Alert and oriented to place, time and person. Sensation and motor function intact bilaterally. No facial droops, dysphasia. PSYCHIATRIC: Good judgement and reason, without hallucinations, abnormal affect or abnormal behaviors during the examination. Patient is not suicidal. Initial Vital Signs Initial Vital Signs: Vital Signs Temperature 98.1 F 09/14/20 14:10 Pulse Rate 71 09/14/20 14:10 Respiratory Rate 18 09/14/20 14:10 Blood Pressure 134/61 09/14/20 14:10 Pulse Oximetry 92 09/14/20 14:10 <Aditya Shafer, DO - Last Filed: 09/14/20 17:54> Initial Vital Signs Initial Vital Signs: Vital Signs Temperature 98.1 F 09/14/20 14:10 Pulse Rate 71 09/14/20 14:10 Respiratory Rate 18 09/14/20 14:10 Blood Pressure 134/61 09/14/20 14:10 Pulse Oximetry 92 09/14/20 14:10 Scores <LYNN ShepherdP - Last Filed: 09/14/20 17:34> GCS Malia coma scale eye opening: Spontaneous Malia coma scale verbal response: Orientated Elkins coma scale motor response: Obey commands Elkins coma scale total score: 15 qSOFA Altered Mental Status (GCS <15): No Respiratory rate greater than/equal to 22: No Systolic blood pressure less than or equal to 100: No qSOFA Total: 0 0-1 Not High Risk 1-3 High risk Citation:: Quick COVID-19 severely index 2 point low risk Course <LYNN ShepherdP - Last Filed: 09/14/20 17:34> Orders Ordered: ED Orders 09/14/20 14:30 Blood Culture Stat 09/14/20 14:35 CMP [Comprehensive Metabolic Panel] Stat COVID19 Stat Complete Blood Count AUTO DIFF Stat D Dimer Stat Ferritin Stat Lactate (Lactic Acid) Stat Lactate Dehydrogenase Stat Procalcitonin Stat Troponin & CK Cardiac Panel Stat 09/14/20 14:39 XR chest 1V Stat 09/14/20 15:41 EKG-12 Lead Stat Sodium Chloride (Normal Saline 0.9%) 1,000 mls @ 125 mls/hr IV CONT JAROD Last Admin: 09/14/20 15:34 Dose: 125 mls/hr Documented by: THANH Sodium Chloride (Normal Saline 0.9%) 1,000 mls @ 125 mls/hr IV CONT JAROD Last Admin: 09/14/20 15:18 Dose: Not Given Documented by: THANH Discontinued Medications Acetaminophen (Acetaminophen 325 Mg Tablet) 650 mg PO NOW ONE Stop: 09/14/20 16:30 Last Admin: 09/14/20 16:38 Dose: 650 mg Documented by: THOMPSON Vital Signs Vital signs: Vital Signs - 8 hr 09/14/20 14:10 09/14/20 14:40 09/14/20 15:54 Temperature 98.1 F Pulse Rate 71 61 73 Respiratory Rate 18 18 Blood Pressure 134/61 149/65 H Pulse Oximetry 92 98 96 09/14/20 16:44 Temperature Pulse Rate 63 Respiratory Rate 16 Blood Pressure 127/61 Pulse Oximetry 96 <Aditya Lanker, DO - Last Filed: 09/14/20 17:54> Orders Ordered: ED Orders 09/14/20 14:30 Blood Culture Stat 09/14/20 14:35 CMP [Comprehensive Metabolic Panel] Stat COVID19 Stat Complete Blood Count AUTO DIFF Stat D Dimer Stat Ferritin Stat Lactate (Lactic Acid) Stat Lactate Dehydrogenase Stat Procalcitonin Stat Troponin & CK Cardiac Panel Stat 09/14/20 14:39 XR chest 1V Stat 09/14/20 15:41 EKG-12 Lead Stat Sodium Chloride (Normal Saline 0.9%) 1,000 mls @ 125 mls/hr IV CONT JAROD Last Admin: 09/14/20 15:34 Dose: 125 mls/hr Documented by: THANH Sodium Chloride (Normal Saline 0.9%) 1,000 mls @ 125 mls/hr IV CONT JAROD Last Admin: 09/14/20 15:18 Dose: Not Given Documented by: THANH Discontinued Medications Acetaminophen (Acetaminophen 325 Mg Tablet) 650 mg PO NOW ONE Stop: 09/14/20 16:30 Last Admin: 09/14/20 16:38 Dose: 650 mg Documented by: BTONERossana Vital Signs Vital signs: Vital Signs - 8 hr 09/14/20 14:10 09/14/20 14:40 09/14/20 15:54 Temperature 98.1 F Pulse Rate 71 61 73 Respiratory Rate 18 18 Blood Pressure 134/61 149/65 H Pulse Oximetry 92 98 96 09/14/20 16:44 Temperature Pulse Rate 63 Respiratory Rate 16 Blood Pressure 127/61 Pulse Oximetry 96 MDM - URI/Sore Throat <TOYA Shepherd - Last Filed: 09/14/20 17:34> Differential Diagnosis Differential diagnosis: Likely other (Covid 19 infection, respiratory failure, respiratory distress, dehydration, ACS) Medical Records Attestation: I reviewed the patient's medical records. Lab Data Attestation: I reviewed the patient's lab results. Result diagrams: 09/14/20 14:35 09/14/20 14:35 Labs: Lab Results 09/14/20 09/14/20 09/14/20 Range/Units 14:35 14:35 14:35 WBC 10.2 (4.5-11.0) X10^3/uL RBC 3.96 L (4.0-5.2) X10^6/uL Hgb 11.8 L (12.0-16.0) g/dL Hct 35.6 L (36-46) % MCV 89.8 (80-100) fL MCH 29.8 (26-34) PG MCHC 33.2 (30-36) % RDW 14.1 (11.6-14.8) % Plt Count 311 (150-400) X10^3/uL Neut % (Auto) 76.8 H (50-75) % Lymph % (Auto) 8.4 L (25-40) % Yancey % (Auto) 13.3 (3-14) % Eos % (Auto) 0.9 L (2-4) % Baso % (Auto) 0.6 (0-2) % Neut # (Auto) 7800 H (5438-6121) /uL Lymph # (Auto) 900 L (6990-7469) /uL Yancey # (Auto) 1400 H (0-900) /uL Eos # (Auto) 100 (0-450) /uL Baso # (Auto) 100 (0-100) /uL D-Dimer (<230) ng/mL Sodium 138 (137-145) mmol/L Potassium 3.7 (3.4-5.1) mmol/L Chloride 104 (98-107) mmol/L Carbon Dioxide 31 (22-32) mmol/L BUN 22 H (7-17) mg/dL Creatinine 0.85 (0.52-1.04) mg/dL Estimated GFR > 60.0 (>60) mL/min BUN/Creatinine Ratio 25.9 H (6-22) Glucose 139 H (80-110) mg/dL Lactate (0.7-2.1) mmol/L Calcium 8.3 L (8.4-10.2) mg/dL Ferritin (11-264) ng/mL Total Bilirubin 0.6 (0.2-1.3) mg/dL AST 54 H (14-36) IU/L ALT 46 H (<35) IU/L Alkaline Phosphatase 78 (38-126) U/L Lactate Dehydrogenase (313-618) U/L Total Creatine Kinase (30-135) U/L CK-MB (CK-2) CK-MB (CK-2) Rel Index Troponin I (0.01-0.034) ng/mL Total Protein 6.8 (6.3-8.2) g/dL Albumin 3.4 L (3.5-5.0) g/dL Globulin 3.4 (1.7-4.1) g/dL Albumin/Globulin Ratio 1.0 (1.0-2.8) Procalcitonin (<0.5) ng/mL COVID-19 PCR Positive H (Negative) 09/14/20 09/14/20 09/14/20 Range/Units 14:35 14:35 14:35 WBC (4.5-11.0) X10^3/uL RBC (4.0-5.2) X10^6/uL Hgb (12.0-16.0) g/dL Hct (36-46) % MCV (80-100) fL MCH (26-34) PG MCHC (30-36) % RDW (11.6-14.8) % Plt Count (150-400) X10^3/uL Neut % (Auto) (50-75) % Lymph % (Auto) (25-40) % Yancey % (Auto) (3-14) % Eos % (Auto) (2-4) % Baso % (Auto) (0-2) % Neut # (Auto) (1560-1142) /uL Lymph # (Auto) (6467-1065) /uL Yancey # (Auto) (0-900) /uL Eos # (Auto) (0-450) /uL Baso # (Auto) (0-100) /uL D-Dimer 235 H (<230) ng/mL Sodium (137-145) mmol/L Potassium (3.4-5.1) mmol/L Chloride (98-107) mmol/L Carbon Dioxide (22-32) mmol/L BUN (7-17) mg/dL Creatinine (0.52-1.04) mg/dL Estimated GFR (>60) mL/min BUN/Creatinine Ratio (6-22) Glucose (80-110) mg/dL Lactate (0.7-2.1) mmol/L Calcium (8.4-10.2) mg/dL Ferritin 942 H (11-264) ng/mL Total Bilirubin (0.2-1.3) mg/dL AST (14-36) IU/L ALT (<35) IU/L Alkaline Phosphatase (38-126) U/L Lactate Dehydrogenase 564 (313-618) U/L Total Creatine Kinase 29 L (30-135) U/L CK-MB (CK-2) TNP CK-MB (CK-2) Rel Index TNP Troponin I < 0.012 (0.01-0.034) ng/mL Total Protein (6.3-8.2) g/dL Albumin (3.5-5.0) g/dL Globulin (1.7-4.1) g/dL Albumin/Globulin Ratio (1.0-2.8) Procalcitonin < 0.05 (<0.5) ng/mL COVID-19 PCR (Negative) 09/14/20 Range/Units 14:35 WBC (4.5-11.0) X10^3/uL RBC (4.0-5.2) X10^6/uL Hgb (12.0-16.0) g/dL Hct (36-46) % MCV (80-100) fL MCH (26-34) PG MCHC (30-36) % RDW (11.6-14.8) % Plt Count (150-400) X10^3/uL Neut % (Auto) (50-75) % Lymph % (Auto) (25-40) % Yancey % (Auto) (3-14) % Eos % (Auto) (2-4) % Baso % (Auto) (0-2) % Neut # (Auto) (9441-0494) /uL Lymph # (Auto) (4640-3405) /uL Yancey # (Auto) (0-900) /uL Eos # (Auto) (0-450) /uL Baso # (Auto) (0-100) /uL D-Dimer (<230) ng/mL Sodium (137-145) mmol/L Potassium (3.4-5.1) mmol/L Chloride (98-107) mmol/L Carbon Dioxide (22-32) mmol/L BUN (7-17) mg/dL Creatinine (0.52-1.04) mg/dL Estimated GFR (>60) mL/min BUN/Creatinine Ratio (6-22) Glucose (80-110) mg/dL Lactate 1.8 (0.7-2.1) mmol/L Calcium (8.4-10.2) mg/dL Ferritin (11-264) ng/mL Total Bilirubin (0.2-1.3) mg/dL AST (14-36) IU/L ALT (<35) IU/L Alkaline Phosphatase (38-126) U/L Lactate Dehydrogenase (313-618) U/L Total Creatine Kinase (30-135) U/L CK-MB (CK-2) CK-MB (CK-2) Rel Index Troponin I (0.01-0.034) ng/mL Total Protein (6.3-8.2) g/dL Albumin (3.5-5.0) g/dL Globulin (1.7-4.1) g/dL Albumin/Globulin Ratio (1.0-2.8) Procalcitonin (<0.5) ng/mL COVID-19 PCR (Negative) Imaging Data Chest x-ray: Radiologist's Impression: Joseline Pascual [place] 74 F [address] [id number] ReportSigned Patient: Joseline Pascual R#: [id number]: 1945cct:[id number]/Sex: 74 / FDate of Service: 09/14/20Loc: EDAccession Number: [id number] Procedure: XR chest 1V Ordering Provider: Aditya Shafer D.O. PROCEDURE: XR CHEST 1V INDICATIONS: known COVID with worsening SOB TECHNIQUE: One view of the chest was acquired. COMPARISON: [facility], , XR CHEST 1V, 09/10/2020, 18:00. FINDINGS: Surgical changes and devices: None. Lungs and pleura: No pleural effusion or pneumothorax. There are persistent right upper and lower lobe peripheral opacities with slightly more consolidative appearance. There also mild peripheral opacity in the left mid lung, unchanged. No definite new focal consolidation. Scattered scarring/atelectasis. Mediastinum: Mediastinal contours appear normal. Heart size is normal. Bones and chest wall: No suspicious bony lesions. Overlying soft tissues appear unremarkable. IMPRESSION: Persistent bilateral opacities, slightly worsened on the right since 09/10/20. No new focal consolidation Dictated by: Tayo Lamar M.D. on 09/14/2020 at 15:15 Approved by: Tayo Lamar M.D. on 09/14/2020 at 15:17 ECG Data Attestation: I personally reviewed and interpreted this ECG as follows: Prior ECG tracings: available for review Interpretation: Sinus bradycardia rate at 58. Left dominant axis. HI interval 188, QRS duration 86, QT/QTC 422/414. No acute ST changes. EKG on09/10/2020 shows sinus rhythm rate at 78 with nonspecific T-wave abnormality MDM Narrative Medical decision making narrative: This is a 74 year female who was diagnosed with COVID and admitted to hospital 4 days ago and discharged to home 2 days ago return to ED with generalized weakness and short of breath. Patient reports short of breath increases with exertion. O2 said on arrival to ED in room air 9 1% without increased work of breathing. Lung sounds clear in upper lobes and mild crackles in bilateral lower lobes. Patient reports occasional coughing feet at home. She feels slightly dehydrated with anorexia. CMP shows mild dehydration with BUN of 22 and BUN creatinine ratio of 25.9. Nonfasting blood glucose 139 today. Normal lactate and procalcitonin. No leukocytosis but mildly elevated neutrophils and decreased lymphocytes. Cardiac enzymes were negative. LDH slightly decreased from 698-564 today. Ferritin level slightly increased to 942 from 727. Portable chest x-ray shows persistent bilateral opacities slightly worse on the right but no new focal consolidation. It would be beneficial for patient to be discharged to home with home oxygen by nasal cannula to use on 2-3 L as needed for short of breath and patient states will try to hydrate herself adequately orally with water and sports drink and to the small meals frequently. Patient has been afebrile last 2 days. Vital signs within normal limits. Strict return precautions were discussed with patient and she verbalized understanding in agreement with the treatment plan. RT consulted and set up o2 portabl tank to use O2 by NC 2-3 liter PRN for a short of breath and to call [facility] for Oxygen delivery. Patient advised to purchase oximeter for home use to keep O2 sats greater than 94%. <Aditya Shafer, DO - Last Filed: 09/14/20 17:54> Lab Data Labs: Lab Results 12/10/20 12/10/20 12/10/20 Range/Units 14:35 14:35 14:35 WBC 10.2 (4.5-11.0) X10^3/uL RBC 3.96 L (4.0-5.2) X10^6/uL Hgb 11.8 L (12.0-16.0) g/dL Hct 35.6 L (36-46) % MCV 89.8 (80-100) fL MCH 29.8 (26-34) PG MCHC 33.2 (30-36) % RDW 14.1 (11.6-14.8) % Plt Count 311 (150-400) X10^3/uL Neut % (Auto) 76.8 H (50-75) % Lymph % (Auto) 8.4 L (25-40) % Yancey % (Auto) 13.3 (3-14) % Eos % (Auto) 0.9 L (2-4) % Baso % (Auto) 0.6 (0-2) % Neut # (Auto) 7800 H (9720-9892) /uL Lymph # (Auto) 900 L (2086-6120) /uL Yancey # (Auto) 1400 H (0-900) /uL Eos # (Auto) 100 (0-450) /uL Baso # (Auto) 100 (0-100) /uL D-Dimer (<230) ng/mL Sodium 138 (137-145) mmol/L Potassium 3.7 (3.4-5.1) mmol/L Chloride 104 (98-107) mmol/L Carbon Dioxide 31 (22-32) mmol/L BUN 22 H (7-17) mg/dL Creatinine 0.85 (0.52-1.04) mg/dL Estimated GFR > 60.0 (>60) mL/min BUN/Creatinine Ratio 25.9 H (6-22) Glucose 139 H (80-110) mg/dL Lactate (0.7-2.1) mmol/L Calcium 8.3 L (8.4-10.2) mg/dL Ferritin (11-264) ng/mL Total Bilirubin 0.6 (0.2-1.3) mg/dL AST 54 H (14-36) IU/L ALT 46 H (<35) IU/L Alkaline Phosphatase 78 (38-126) U/L Lactate Dehydrogenase (313-618) U/L Total Creatine Kinase (30-135) U/L CK-MB (CK-2) CK-MB (CK-2) Rel Index Troponin I (0.01-0.034) ng/mL Total Protein 6.8 (6.3-8.2) g/dL Albumin 3.4 L (3.5-5.0) g/dL Globulin 3.4 (1.7-4.1) g/dL Albumin/Globulin Ratio 1.0 (1.0-2.8) Procalcitonin (<0.5) ng/mL COVID-19 PCR Positive H (Negative) 09/14/20 09/14/20 09/14/20 Range/Units 14:35 14:35 14:35 WBC (4.5-11.0) X10^3/uL RBC (4.0-5.2) X10^6/uL Hgb (12.0-16.0) g/dL Hct (36-46) % MCV (80-100) fL MCH (26-34) PG MCHC (30-36) % RDW (11.6-14.8) % Plt Count (150-400) X10^3/uL Neut % (Auto) (50-75) % Lymph % (Auto) (25-40) % Yancey % (Auto) (3-14) % Eos % (Auto) (2-4) % Baso % (Auto) (0-2) % Neut # (Auto) (1213-2028) /uL Lymph # (Auto) (8900-7102) /uL Yancey # (Auto) (0-900) /uL Eos # (Auto) (0-450) /uL Baso # (Auto) (0-100) /uL D-Dimer 235 H (<230) ng/mL Sodium (137-145) mmol/L Potassium (3.4-5.1) mmol/L Chloride (98-107) mmol/L Carbon Dioxide (22-32) mmol/L BUN (7-17) mg/dL Creatinine (0.52-1.04) mg/dL Estimated GFR (>60) mL/min BUN/Creatinine Ratio (6-22) Glucose (80-110) mg/dL Lactate (0.7-2.1) mmol/L Calcium (8.4-10.2) mg/dL Ferritin 942 H (11-264) ng/mL Total Bilirubin (0.2-1.3) mg/dL AST (14-36) IU/L ALT (<35) IU/L Alkaline Phosphatase (38-126) U/L Lactate Dehydrogenase 564 (313-618) U/L Total Creatine Kinase 29 L (30-135) U/L CK-MB (CK-2) TNP CK-MB (CK-2) Rel Index TNP Troponin I < 0.012 (0.01-0.034) ng/mL Total Protein (6.3-8.2) g/dL Albumin (3.5-5.0) g/dL Globulin (1.7-4.1) g/dL Albumin/Globulin Ratio (1.0-2.8) Procalcitonin < 0.05 (<0.5) ng/mL COVID-19 PCR (Negative) 09/14/20 Range/Units 14:35 WBC (4.5-11.0) X10^3/uL RBC (4.0-5.2) X10^6/uL Hgb (12.0-16.0) g/dL Hct (36-46) % MCV (80-100) fL MCH (26-34) PG MCHC (30-36) % RDW (11.6-14.8) % Plt Count (150-400) X10^3/uL Neut % (Auto) (50-75) % Lymph % (Auto) (25-40) % Yancey % (Auto) (3-14) % Eos % (Auto) (2-4) % Baso % (Auto) (0-2) % Neut # (Auto) (7347-9504) /uL Lymph # (Auto) (7420-5412) /uL Yancey # (Auto) (0-900) /uL Eos # (Auto) (0-450) /uL Baso # (Auto) (0-100) /uL D-Dimer (<230) ng/mL Sodium (137-145) mmol/L Potassium (3.4-5.1) mmol/L Chloride (98-107) mmol/L Carbon Dioxide (22-32) mmol/L BUN (7-17) mg/dL Creatinine (0.52-1.04) mg/dL Estimated GFR (>60) mL/min BUN/Creatinine Ratio (6-22) Glucose (80-110) mg/dL Lactate 1.8 (0.7-2.1) mmol/L Calcium (8.4-10.2) mg/dL Ferritin (11-264) ng/mL Total Bilirubin (0.2-1.3) mg/dL AST (14-36) IU/L ALT (<35) IU/L Alkaline Phosphatase (38-126) U/L Lactate Dehydrogenase (313-618) U/L Total Creatine Kinase (30-135) U/L CK-MB (CK-2) CK-MB (CK-2) Rel Index Troponin I (0.01-0.034) ng/mL Total Protein (6.3-8.2) g/dL Albumin (3.5-5.0) g/dL Globulin (1.7-4.1) g/dL Albumin/Globulin Ratio (1.0-2.8) Procalcitonin (<0.5) ng/mL COVID-19 PCR (Negative) Discharge Plan Departure Patient Disposition: Home Clinical Impression: COVID-19 virus infection Instructions: DI for COVID-19 (Suspected or Confirmed ) Activity Restrictions/Additional Instructions: You have been diagnosed with [COVID-19 infection and bilateral low viral pneumonia. Lab tests and x-ray tests are not worse and 4 days ago. Blood test indicates some mild dehydration. O2 sat in room air was 91% or lowest and keeping greater than 94% with nasal cannula on 2 L. you were hydrated with IV fluid.]. What to do: *Take your medications as directed. Please continue with your current medications. Please use oxygen with short of breath and low O2 sat. You can order pulse ox to check O2 saturation periodically to keep greater than 94%. *Follow up with your primary care provider in 2-3 days, call for an appointment. Let them know you were seen in the ED and that we asked you to be seen in follow up. *Return to ED if you have any new, worsening, or concerning symptoms, such as [worsening pain, short of breath even using oxygen, chest pain, fever not managed well with medications, unable to tolerate fluids, or any acute concerns. Please continue with good hand hygiene and social distancing, self isolation up to 10 days for symptoms free. Please hydrate well with water and sports drink. Please eat small amounts frequently.]. Prescriptions: No Action glimepiride 2 mg tablet RF: 0 potassium 99 mg Tablet RF: 0 simvastatin 20 mg Tablet 20 mg PO BEDTIME RF: 0 aspirin [Concepcion Chewable Aspirin] 81 mg Tablet,Chewable 81 mg PO DAILY RF: 0 vitamin B complex Capsule 1 cap PO DAILY RF: 0 cholecalciferol (vitamin D3) 50 mcg (2,000 unit) Capsule 50 mcg PO DAILY RF: 0 Dexilant 60 mg Capsule,Biphase Delayed Releas 60 mg PO DAILY RF: 0 Xeljanz XR 11 mg Tablet Extended Release 24 Hr 11 mg PO Q24H RF: 0 nitroglycerin 0.3 mg Tablet, Sublingual 0.3 mg SUBLINGUAL Q5-15M PRN (Reason: Chest Pain) RF: 0 prednisone 5 mg Tablet 5 mg PO TAPER PRN (Reason: RA flare up ) RF: 0 amlodipine 5 mg Tablet 5 mg PO DAILY 30 Days Qty: 30 RF: 0 Referrals: Kalpesh Ochoa MD [Primary Care Provider] - <Aditya Shafer DO - Last Filed: 09/14/20 17:54> Cosign ED [facility]ending [facility] Attestation: Dr Shafer Co-Sign Statement: I was available for consultation during this patient's emergency department visit. This chart is signed by myself for administrative purposes only. I did not have direct contact with this patient during this visit. They were seen independently by the APC.
[2020-09-14 15:30] LABS: Creatine Kinase 29 U/L (30-135); Lactate Dehydrogenase 564 U/L (313-618)
[2020-09-14 15:31] LABS: Lactate (Lactic Acid) 1.8 mmol/L (0.7-2.1)
[2020-09-14 15:32] LABS: Alanine Aminotransferase 46 IU/L (<35); Albumin 3.4 g/dL (3.5-5.0); Alkaline Phosphatase 78 U/L (38-126); Aspartate Aminotransferase 54 IU/L (14-36); BUN Creatinine Ratio 25.9 (6-22); Bilirubin Total 0.6 mg/dL (0.2-1.3); Blood Urea Nitrogen 22 mg/dL (7-17); Calcium 8.3 mg/dL (8.4-10.2); Carbon Dioxide 31 mmol/L (22-32); Chloride 104 mmol/L (98-107); Estimated Glomerular Filt Rate > 60.0 mL/min (>60); Globulin 3.4 g/dL (1.7-4.1); Glucose 139 mg/dL (80-110); HEMOLYSIS < 15 (0-50); Potassium 3.7 mmol/L (3.4-5.1); Sodium 138 mmol/L (137-145); Total Protein 6.8 g/dL (6.3-8.2)
[2020-09-14] MEDS: SODIUM CHLORIDE 0.9% 1,000 ML 125 ML IV (15:34)
[2020-09-14 15:39] LABS: D Dimer 235 ng/mL (<230)
[2020-09-14 15:43] LABS: Troponin I < 0.012 ng/mL (0.01-0.034)
[2020-09-14 15:50] LABS: Procalcitonin < 0.05 ng/mL (<0.5)
[2020-09-14 15:54] VITALS: BP 149/65; PULSE 73; RESP 18; O2SAT 96
[2020-09-14 15:58] LABS: COVID19 -Nasal RAPID POSITIVE (Negative)
[2020-09-14 16:06] LABS: Ferritin 942 ng/mL (11-264)
[2020-09-14] MEDS: ACETAMINOPHEN 325 MG TABLET 650 MG PO (16:38)
[2020-09-14 16:44] VITALS: BP 127/61; PULSE 63; RESP 16; O2SAT 96
[2020-09-14 18:25] VITALS: BP 131/64; PULSE 60; RESP 17; O2SAT 95
--- NOTE | 2020-09-28 10:47 | PC.NURSE ---
Iv Normal saline was stopped at 182.
== END 2020-09-14 18:27 | disposition home or self-care (01) ==
PROVIDERS: Emergency Provider Nurse Practitioner Family; PCP Internal Medicine
DX: U07.1 COVID-19 (principal); R53.1 Weakness; R06.02 Shortness of breath; R07.9 Chest pain, unspecified; R51.9 Headache, unspecified; I25.10 Atherosclerotic heart disease of native coronary artery without angina pectoris; E11.9 Type 2 diabetes mellitus without complications; E78.5 Hyperlipidemia, unspecified; Z95.5 Presence of coronary angioplasty implant and graft
CPT/HCPCS: 36415; 71045; 80053; 82550; 82728; 83605; 83615; 84145; 84484; 85025; 85379; 87040; 87635; 93005; 93010; 96360; 96361; 99284